=== PATIENT | female | born 1965 | race Caucasian/White ===

== ENCOUNTER 2020-08-03 09:49 | Outpatient (CLI) | payer BC, SELFPAY ==
[2020-08-03 13:12] LABS: Hemoglobin A1C 5.3 % (<5.7)
[2020-08-03 13:13] LABS: Anion Gap 9.4 mmol/L (3-11); BUN 11 mg/dL (7-18); CO2 29.6 mmol/L (21.0-32.0); CREATININE 0.6 mg/dL (0.55-1.02); Calcium 9.2 mg/dL (8.5-10.1); Calculated LDL 109 mg/dL (<100); Chloride 105 mmol/L (98-107); Cholesterol 205 mg/dL (<200); Glucose 89 mg/dL (74-106); HDL Cholesterol 83 mg/dL (40-60); Potassium 4.2 mmol/L (3.5-5.1); Sodium 144 mmol/L (136-145); Triglyceride 67 mg/dL (<150)
== END 2020-08-03 09:50 | disposition home or self-care (01) ==
LOC: LOS 09:50
PROVIDERS: PCP Nurse Practitioner Family; Referring Provider Nurse Practitioner Family; Visit Provider Nurse Practitioner Family
DX: E78.5 Hyperlipidemia, unspecified (principal)
CPT/HCPCS: 36415; 80048; 80061; 83036

== ENCOUNTER 2021-10-23 14:07 | Outpatient (REF) | payer BC, SELFPAY ==
[2021-10-23 21:30] LABS: Bilirubin Negative (Negative); Blood Large (Negative); Clarity Cloudy (Clear); Glucose Negative (Negative); Ketones Negative (Negative); Leukocyte Esterase Moderate (Negative); Nitrite Negative (Negative); Urobilinogen 0.2 EU/dL (Up TO 0.2)
[2021-10-23 21:39] LABS: WBC >50 HPF (0-5)
[2021-10-23 21:40] LABS: Bacteria Rare HPF (Negative); C & S Indicated? Yes; RBC >50 HPF (0-2)
== END 2021-10-23 14:08 | disposition home or self-care (01) ==
LOC: LBN 14:07
PROVIDERS: PCP Nurse Practitioner Family; Visit Provider Nurse Practitioner Family
DX: R35.0 Frequency of micturition (principal); R30.0 Dysuria; N39.0 Urinary tract infection, site not specified
CPT/HCPCS: 87077; 81003; 81015; 87086; 87186

== ENCOUNTER 2022-12-01 19:26 | Emergency (ER) | payer BC, SELFPAY ==
[2022-12-01 19:29] VITALS: BP 125/64; PULSE 84; TEMP 37.2; O2SAT 99
--- NOTE | 2022-12-01 19:42 | W.ED.GENAD ---
Discharge Plan Disposition Patient Disposition: Home Discharge Details Clinical Impression: Cellulitis Primary Care Provider: Yris Cerna ED Provider: Fabian García Home Meds and New Rx's Prescriptions: New cephalexin 500 mg tablet 500 mg PO QID 6 Days Qty: 24 0RF Continued Digestive Advantage Probio-Pre 800 million cell tablet PO estrotone PO DAILY cholecalciferol (vitamin D3) 250 mcg (10,000 unit) capsule 250 mcg PO DAILY multivitamin Tablet 1 tab PO DAILY Discharge Instructions Instructions: Cellulitis (ED) Additional Instructions: As discussed please monitor your symptoms closely and if you have any significant worsening of your condition return immediately to the emergency department for reassessment. Otherwise make sure you take the antibiotics as prescribed and complete the full course of medication. We have placed a referral to primary care provider and is recommended that you follow-up with them in the next 24 to 48 hours. Referrals: Yris Cerna, ONCOLOGY NURSE [Primary Care Provider] - 2 days Medical Decision Making Patient presenting to the emergency department for chief complaint of yellowjacket sting. Patient reports yesterday she was stung on the left thumb and had localized reaction which was unremarkable. This morning she woke up and noticed some increased erythema to the hand. Over the course of the day erythema became more painful and more swelling with streaking redness up her arm. She does state some chills now but denies any fever or other systemic symptoms. Physical exam does show area consistent with bee sting significant swelling and erythema with streaking up the arm to the mid bicep. Patient is not tachycardic, febrile or hypotensive. I am concerned due to significant staining and rapid progression in the last 24 hours with hand involvement. Due to this we will check blood work, blood cultures, and will initiate IV antibiotics with Ancef. Reviewed patient's labs and CBC is unremarkable, ESR is 3, lactate is 0.6. CRP 0.08 CMP shows slightly decreased potassium at 3.1 which we will orally replete otherwise labs are unremarkable. Given overall very reassuring lab work-up I do feel that patient is appropriate candidate for trial of outpatient therapy. Discussed with patient close monitoring of symptoms along with low threshold to return for significant worsening of condition fever or systemic symptoms. Patient is in agreement with this plan and states she will return if needed. Patient placed upon Keflex and on follow-up with primary care provider preferably in the next 24 to 48 hours. After discussion of diagnosis and plan of care patient has no further needs, questions, or concerns and states clear understanding to return to the emergency department for any worsening symptoms. This documentation was generated using [employer] dictation system, please disregard any oddities of phrase or misspellings. Lab Data Lab results reviewed: Yes I reviewed the patient's lab results. HPI General Mode of arrival: ambulatory. Date/Time Provider Initiated Documentation: 12/01/22 19:34. Limitations to Documentation: no limitations. Information obtained by: patient and RN notes reviewed. History of Present Illness 57 year old F presents to the emergency department with the chief complaint of Left hand bee sting, described as moderate, Quality is described as aching, and is localized to the left and upper extremity. Patient started experiencing this day(s) (1) and it has been constant. No relieving factors improve symptom(s), No exacerbating factors reported . Patient notes no other symptoms.. Patient did receive the following treatments prior to arrival, other (Benadryl) Related Data Home Medications Medication Instructions Recorded Confirmed Bacillus coagulans 800 million cell PO 02/26/22 02/26/22 cell tablet (Digestive Advantage Probiotics-Prebiotic) cholecalciferol (vitamin D3) 250 250 mcg PO DAILY 02/26/22 12/01/22 mcg (10,000 unit) capsule estrotone PO DAILY 02/26/22 02/26/22 multivitamin 1 tab PO DAILY 02/26/22 12/01/22 cephalexin 500 mg tablet 500 mg PO QID 6 days #24 tabs 12/01/22 Previous Rx's Medication Instructions Recorded cephalexin 500 mg tablet 500 mg PO QID 6 days #24 tabs 12/01/22 Allergies Allergy/AdvReac Type Severity Reaction Status Date / Time gluten Allergy Intermediate Verified 02/26/22 10:59 mold Allergy Intermediate Verified 02/26/22 10:59 General Stated Complaint: InsectBite ANT: 3 Review of Systems Constitutional Constitutional: Reports chills, Denies fever(s) and Denies malaise Cardiovascular Cardiovascular: Denies chest pain Respiratory Respiratory: Reports system reviewed and no additional complaints, except as documented Musculoskeletal Musculoskeletal: Reports arthralgias, Reports joint swelling and Denies limited range of motion Integumentary/Breasts Skin/Breast: Reports as per HPI, Reports erythema, Reports rash, Reports skin pain and Reports skin swelling [facility] All Active Problems (Updated 12/01/22 @ 21:33 by Fabian García NP) Cellulitis (Acute) 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 (Chronic) Stress incontinence (Chronic) Hyperlipidemia (Chronic) Medical History Basal cell carcinoma (10/16/14) S/p excisions from left neck and left forehead Depressive disorder Surgical History H/O basal cell carcinoma excision (10/16/14) From left neck S/P laparoscopy Diagnostic laproscopy S/P Mohs surgery for basal cell carcinoma (02/24/18) To left forehead S/P vaginal hysterectomy (05/01/09) For uterine prolapse at [facility]; ovaries remain Family History Mother , 70 Pulmonary emphysema Lung cancer Father , 70 Essential hypertension Heart disease Hyperlipidemia Brain aneurysm Thyroid disease Sister Atrial fibrillation Sister Asthma Thyromegaly Son No problems noted. Daughter Factor VIII deficiency Asthma Thyroid disease Maternal Grandfather Alcohol abuse Bone cancer Maternal Grandmother Lymphoma Paternal Grandfather No problems noted. Paternal Grandmother Asthma Stomach cancer Social History Smoking/Tobacco Use Status: Former Tobacco Use Quit Date: 03/30/82 Tobacco: How many years used: 5 Quit status: has quit before Second Hand Exposure: Yes Smoking risk assessment performed?: Yes Alcohol Intake: current Alcohol Intake frequency: a few times a month Alcohol type: beer, wine and hard liquor Drug use: Daily Substance use type: marijuana Caregiver/Support person: No Household members: spouse Housing: house Communication Needs: None Do you need help understanding health information?: Rarely Pets and animals: Yes Pets and animals: cat(s) Sexually active: Yes Do you think of yourself as: straight/heterosexual Current gender identity: female What is your relationship status?: How often do you talk on the phone with friends or family?: decline to answer How often do you get together with friends or relatives?: decline to answer How often do you attend pentecostalism or worship services?: decline to answer Do you belong to any clubs or organized social groups?: decline to answer Panel score (0-1 are the most socially isolated patients): 1 What type of physical activity do you participate in: decline to answer Duration: decline to answer Frequency: decline to answer Taina/Anabaptism: No preference Special taina needs: No Seatbelt use: always Helmet use: Yes Helmet use: always Drive intox or ride w/intox trolley coach driver: No Female Reproductive History Menstrual Menopause type: surgical History History 2 Para 2 Hx # Term Pregnancies Multiple births Hx # Pregnancies Ectopic pregnancies AB induced Hx Number of Living Children 2 AB spontaneous Exam Const General: cooperative, no acute distress and not ill appearing Orientation: alert, awake and oriented x3 HENMT Mouth: moist mucous membranes Resp Effort & Inspection: normal respiratory effort, able to speak in complete sentences and no respiratory distress Cardio Rate: regular rate Rhythm: regular rhythm Skin General skin exam: no rashes or lesions noted Neuro General: patient alert, patient awake, patient oriented x3, moves all extremities and no focal motor deficits Sensory Exam: no sensory deficits noted Extrem General: normal exam except as noted Left upper extremity: hand Details: normal capillary refill, warmth Location: of the dorsal hand and of the thumb, swelling Location: of the dorsal hand and of the thumb, puncture wound and other (Erythema on the hand thumb streaking up to the mid bicep) Course Vital Signs Vital signs: Vital Signs Temperature 37.2 C 12/01/22 19:29 Pulse 84 12/01/22 19:29 Blood Pressure 125/64 12/01/22 19:29 Pulse Oximetry 99 12/01/22 19:29 Temperature 37.2 C 12/01/22 19:29 Temperature Source Oral 12/01/22 19:29 Pulse 84 12/01/22 19:29 Blood Pressure 125/64 12/01/22 19:29 Blood Pressure Position Sitting 12/01/22 19:29 Pulse Oximetry 99 12/01/22 19:29 Oxygen Delivery Method Room Air 12/01/22 19:29 Oxygen Flow Rate 0 12/01/22 19:29 Pain Level 5 12/01/22 19:29 Lab/Test Results Lab/Test Results: 12/01/22 19:39 Blood Blood Culture - Pending 12/01/22 19:39 Blood Blood Culture - Pending
[2022-12-01] MEDS: ceFAZolin 2 GM/50 ML BAG IVPB (20:15)
[2022-12-01 20:18] LABS: Lactate 0.6 mmol/L (0.6-1.4)
[2022-12-01 20:21] LABS: Absolute Basophil Count 0.02 10^3/uL (0.0-0.2); Absolute Eosinophil Count 0.05 10^3/uL (0.0-0.7); Absolute Lymphocyte Count 1.36 10^3/uL (1.2-3.4); Absolute Monocyte Count 0.53 10^3/uL (0.1-0.8); Absolute Neutrophil Count 5.38 10^3/uL (1.2-6.7); Basophils % 0.3; Eosinophils % 0.7; HGB 15.1 g/dL (11.2-15.7); Lymphocytes % 18.5; MCH 29.4 pg (27.0-33.0); MCHC 33.6 % (32.0-36.0); MCV 88 fL (80-95); MPV 9.9 fL (8.0-11.0); Monocytes % 7.2; Neutrophils % 73.3; Platelet Count 182 10^3/uL (130-400); RBC 5.14 10^6/uL (3.93-5.22); RDW 12.1 % (11.7-14.6); RDW-SD 39.2 fL; WBC 7.34 10^3/uL (4.4-10.8)
[2022-12-01 20:22] LABS: ESR 3 mm/hr (0-30)
[2022-12-01 20:35] LABS: ALT 24 U/L (14-59); AST 18 U/L (15-37); Albumin 4.4 g/dL (3.4-5.0); Alkaline Phosphatase 93 U/L (46-116); Anion Gap 8.5 mmol/L (3-11); BUN 12 mg/dL (7-18); Bilirubin, Total 0.4 mg/dL (0.2-1.0); C-Reactive Protein 0.08 mg/dL (0.0-0.3); CO2 30.5 mmol/L (21.0-32.0); CREATININE 0.7 mg/dL (0.55-1.02); Calcium 9.3 mg/dL (8.5-10.1); Chloride 103 mmol/L (98-107); Estimated GFR 99.57 (mL/min/1.73m2); Glucose 95 mg/dL (74-106); Magnesium 2.1 mg/dL (1.8-2.4); Potassium 3.1 mmol/L (3.5-5.1); Sodium 142 mmol/L (136-145)
[2022-12-01] MEDS: Potassium Chloride 20 MEQ TABCR 40 MEQ PO (20:42)
[2022-12-01] MEDS: Cephalexin 500 MG CAP, 4 CAPS/BTL PO (21:40)
--- NOTE | 2022-12-01 21:41 | NUR.NOTE ---
Referral faxed to [facility] to follow up in 24-48 hours for Left hand cellulitis.
[2022-12-01 21:44] VITALS: BP 132/72; PULSE 72; RESP 16; O2SAT 99
== END 2022-12-01 21:44 | disposition home or self-care (01) ==
PROVIDERS: Emergency Provider Nurse Practitioner Family; PCP Nurse Practitioner Family
DX: T63.461A Toxic effect of venom of wasps, accidental (unintentional), initial encounter (principal); L03.114 Cellulitis of left upper limb; L50.8 Other urticaria; E87.6 Hypokalemia; Z87.891 Personal history of nicotine dependence; Y92.89 Other specified places as the place of occurrence of the external cause
CPT/HCPCS: 80053; 85652; 87040; 96365; 99283; 83605; 83735; 85025; 86140; J0690

== ENCOUNTER → 2023-03-10 01:51 | Outpatient (CLI) | payer BC, SELFPAY ==
--- NOTE | 2023-03-10 08:00 | DI.RAD_ITS ---
Exam(s) XR CERVICAL SPINE COMP 4-5V EXAM: XR CERVICAL SPINE COMP 4-5V CLINICAL HISTORY: chronic neck pain,m54.2. TECHNIQUE: 2D digital imaging was performed. Five views were performed. COMPARISON: No exams were available for comparison FINDINGS: BONES: No fracture or destructive lesion. Vertebral bodies are unremarkable. DISKS: Moderate to severe narrowing of the C5-6 and C7 disc spaces. Endplate osteophytes. Minimal n eural foraminal narrowing on the right at these levels. ALIGNMENT: Some straightening of the normal cervical lordosis which could be secondary to muscle spas m or degenerative changes. The odontoid and atlantoaxial articulations are normal. SOFT TISSUE: Normal. The lung apices are clear. IMPRESSION: Degenerative changes C5-6 and C6-7. DATA REPOSITORY: RADIATION DOSE DELIVERED:
--- NOTE | 2023-03-10 08:00 | DI.MAMMO_ITS ---
Exam(s) MAMMO SCREENING EXAM: MAMMO SCREENING CLINICAL HISTORY: screening,z12.39 TECHNIQUE: Bilateral full field digital CC and MLO mammographic images were obtained with 3D tomosyn thesis and utilizing computer aided detection (CAD). COMPARISON: Available for comparison. FINDINGS: Masses/Architectural Distortion: There has been no change in the well-circumscribed nodule in the go tral left breast. No new nodules are seen. No areas of architectural distortion are present. Microcalcifications: No suspicious pleomorphic-type are seen. Skin Thickening/Nipple Retraction: None. IMPRESSION: 1. No significant interval change with no specific features of malignancy noted. 2. Unless there is more urgent need, screening mammography is recommended, as per [place] guidelines. BI-RADS Category 2 - Benign Findings Breast Density - Category C - Heterogeneously dense Breast density category C or D implies that the patient has dense breast tissue. Dense breast tissue is very common and is not abnormal but dense breast tissue can make it harder to find cancer on a ma mmogram. Also, dense breast tissue may increase their breast cancer risk. This information about the result of the mammogram report was provided to the patient to raise their awareness. Use this report when you speak with the patient about their risks for breast cancer, which includes their family hist ory. At that time, you may recommend for more screening tests (Ultrasound or MRI) as they might be us eful based on their risk. A negative radiographic report should not delay biopsy if a dominant or clinically suspicious mass is present. Up to ten percent of cancers are not identified on mammography. A negative report may reinforce clinical impression. Adenosis and dense breasts may obscure an underlying neoplasm. False positive reports average 6 to 10%. Patient will receive a letter notifying them of these results.
== END ==
PROVIDERS: PCP Nurse Practitioner Family; Visit Provider Nurse Practitioner Family
DX: Z12.31 Encounter for screening mammogram for malignant neoplasm of breast (principal); M50.022 Cervical disc disorder at C5-C6 level with myelopathy; M50.023 Cervical disc disorder at C6-C7 level with myelopathy
CPT/HCPCS: 77063; 77067; 72050

== ENCOUNTER 2023-03-17 02:45 | Outpatient (CLI) | payer BC, SELFPAY ==
[2023-03-17 09:01] LABS: HCT 41.1 % (36.0-46.0); HGB 13.5 g/dL (11.2-15.7); MCH 29.3 pg (27.0-33.0); MCHC 32.8 % (32.0-36.0); MCV 89 fL (80-95); MPV 10.5 fL (8.0-11.0); Platelet Count 175 10^3/uL (130-400); RBC 4.61 10^6/uL (3.93-5.22); RDW 12.3 % (11.7-14.6); RDW-SD 40.4 fL; WBC 4.01 10^3/uL (4.4-10.8)
[2023-03-17 10:03] LABS: Anion Gap 5.7 mmol/L (3-11); BUN 10 mg/dL (7-18); CO2 30.3 mmol/L (21.0-32.0); CREATININE 0.7 mg/dL (0.55-1.02); Calculated LDL 91 mg/dL (<100); Chloride 103 mmol/L (98-107); Cholesterol 184 mg/dL (<200); Estimated GFR 99.57 (mL/min/1.73m2); Glucose 98 mg/dL (74-106); HDL Cholesterol 82 mg/dL (40-60); Potassium 3.5 mmol/L (3.5-5.1); Sodium 139 mmol/L (136-145); TSH (W/Ref FT4) 1.29 uIU/mL (0.36-3.74); Triglyceride 56 mg/dL (<150); Vitamin B12 625 pg/mL (193-986)
[2023-03-17 19:03] LABS: Hepatitis C Ab w Rflx HCV PCR Negative (Negative)
== END 2023-03-17 02:46 | disposition home or self-care (01) ==
LOC: LBO 02:45
PROVIDERS: PCP Nurse Practitioner Family; Visit Provider Nurse Practitioner Family
DX: Z00.00 Encounter for general adult medical examination without abnormal findings (principal)
CPT/HCPCS: 36415; 80048; 80061; 85027; 86803; 82607; 84443

== ENCOUNTER → 2023-04-07 01:51 | Outpatient (CLI) | payer BC, SELFPAY ==
--- NOTE | 2023-04-07 08:00 | DI.MRI_ITS ---
Exam(s) MR IAC BRAIN WO/W EXAM: MR IAC BRAIN WO/W CLINICAL HISTORY: vertigo,dizziness, tinnitus rt ear,[id number].H03.11 TECHNIQUE: Multiplanar multisequence MRI of the brain was performed. Both noninfused and contrast i nfused sequences were performed. IAC protocol sequences were employed IV Contrast injected was 10 cc Dotarem. COMPARISON: No exams were available for comparison FINDINGS: CEREBRAL PARENCHYMA: No evidence of intracranial hemorrhage, mass effect nor shift of midline structu re. No extraaxial fluid collections. Ventricles are not enlarged nor shifted. There is no significant focal signal abnormality in the cerebellar hemispheres nor within the joseph, m idbrain, and thalami. There is no abnormal signal abnormality in the periventricular white matter. There are no masses in the cerebellopontine angles and no evidence of intra canalicular acoustic schw annoma neuroma. The sub millimeter slice thickness sequences reveal normal appearing 7th and 8th refrigerator crater nial nerves within the bilateral internal auditory canals. DWI: No areas of restricted diffusion to suggest acute ischemic event. SWI: No microhemorrhages evident. There are no ring enhancing lesions in the brain. There is no abnormal meningeal enhancement. PITUITARY GLAND: No mass nor parasellar abnormality. No obvious abnormality in the cavernous sinuses. FLOW VOIDS: The expected flow void are noted. No evidence of obvious aneurysm nor obvious vascular ma lformation. PARANASAL SINUSES: The visualized paranasal sinuses appear unremarkable. ORBITS: No obvious abnormal findings. IMPRESSION: 1. No significant intracranial findings on this MRI scan of the brain. 2. No abnormal enhancing intracranial findings. There are no ring enhancing lesions in the brain and there is no abnormal meningeal enhancement. 3. No evidence of acoustic schwannoma/neuroma DATA REPOSITORY:
[2023-04-07] MEDS: Gadoterate meglumine 20 ML SYRINGE 10 ML IVP (13:54)
[2023-04-07] MEDS: Normal Saline Flush 10 ML SYR IVP (13:54)
== END ==
PROVIDERS: PCP Nurse Practitioner Family; Visit Provider Registered Nurse Maternal Newborn
DX: H93.11 Tinnitus, right ear (principal); R42 Dizziness and giddiness; M50.322 Other cervical disc degeneration at C5-C6 level
CPT/HCPCS: 70553

== ENCOUNTER → 2023-04-07 01:51 | Outpatient (CLI) | payer BC, SELFPAY ==
--- NOTE | 2023-04-07 08:00 | DI.MRI_ITS ---
Exam(s) MR CERVICAL SPINE WO EXAM: MR CERVICAL SPINE WO CLINICAL HISTORY: chronic neck pain, radiculopathy,djd,m47.812 TECHNIQUE: Multiplanar multisequence MRI of the cervical spine was performed without intravenous con trast. COMPARISON: CR XR CERVICAL SPINE COMP 4-5V from 03/10/2023 FINDINGS: CERVICOMEDULLARY JUNCTION: Intact with no evidence of cerebellar tonsillar ectopia. No obvious abnor mality of the odontoid process. No evidence of Chiari 1 malformation. CERVICAL SPINAL CORD: There is no abnormal signal in the cervical spinal cord and no evidence of foca l cord atrophy nor focal cord swelling. OSSEOUS: Mild bursal of the cervical curvature noted. Probably related to muscle spasm. No cervical fractures nor listhesis evident. Bright T1 and T2 2 signal evident in the C6 and C7 vertebral cande s consistent with intraosseous hemangiomas. No ominous osseous lesions identified. INDIVIDUAL LEVELS: C2-3: No disc herniation nor central canal stenosis. No foraminal stenosis. No facet arthropathy. C3-4: No disc herniation nor central canal stenosis.No facet arthropathy. No foraminal stenosis. C4-5: No disc herniation nor central canal stenosis.No facet arthropathy. No foraminal stenosis on th e right side. There are small Luschka joint osteophytes on the left side with mild left-sided forami nal stenosis. C5-6: Chronic disc space narrowing evident at this level. No disc herniation. No central canal sten osis. No facet arthropathy. Left-sided Luschka joint osteophytes are noted. Three. Mild left-side d foraminal stenosis. No foraminal stenosis on the right side. C6-7: Chronic disc space narrowing also evident at this level. No disc herniation or central canal s tenosis. No significant facet arthropathy evident. Small right-sided Luschka joint osteophytes. Mi nimal foraminal stenosis on the right side. Also mild foraminal stenosis on the left side due to Valeria chka joint osteophytes. C7-T1: No disc herniation nor central canal stenosis. No facet arthropathy.No foraminal stenosis. IMPRESSION: 1. There is multilevel chronic disc space narrowing at C5-6 and C6-7 levels and there are small Lusch ka joint osteophytes at these levels as described above. 2. There is no evidence of disc herniation nor central spinal canal stenosis in the cervical spine. There is mild foraminal stenosis at C5-6 and C6-7 levels related to small bilateral Luschka joint ost eophytes at these levels. There is no significant facet arthropathy. 3. There is no signal abnormality in the cervical spinal cord. No evidence of focal cord swelling no r focal cord atrophy DATA REPOSITORY:
[2023-04-07 13:46] LABS: CREATININE 0.7 mg/dL (0.55-1.02); Estimated GFR 99.57 (mL/min/1.73m2)
== END ==
PROVIDERS: Registered Nurse Maternal Newborn; PCP Nurse Practitioner Family; Visit Provider Nurse Practitioner Family
DX: H93.11 Tinnitus, right ear (principal); R42 Dizziness and giddiness; M47.812 Spondylosis without myelopathy or radiculopathy, cervical region
CPT/HCPCS: 72141; 82565

== ENCOUNTER 2023-07-08 05:43 | Outpatient (CLI) | payer BC, SELFPAY ==
[2023-07-08 13:28] LABS: Abs Immature Grans 0.01 10^3/uL (0.0-0.06); Absolute Basophil Count 0.03 10^3/uL (0.0-0.2); Absolute Eosinophil Count 0.02 10^3/uL (0.0-0.7); Absolute Lymphocyte Count 1.39 10^3/uL (1.2-3.4); Absolute Monocyte Count 0.48 10^3/uL (0.1-0.8); Absolute Neutrophil Count 3.48 10^3/uL (1.2-6.7); Basophils % 0.6; Eosinophils % 0.4; HCT 43.3 % (36.0-46.0); HGB 14.6 g/dL (11.2-15.7); Immature Grans % 0.2; Lymphocytes % 25.7; MCH 29.9 pg (27.0-33.0); MCHC 33.7 % (32.0-36.0); MCV 89 fL (80-95); Monocytes % 8.9; Neutrophils % 64.2; Platelet Count 182 10^3/uL (130-400); RBC 4.89 10^6/uL (3.93-5.22); RDW 11.9 % (11.7-14.6); RDW-SD 38.5 fL; WBC 5.41 10^3/uL (4.4-10.8)
== END 2023-07-08 05:44 | disposition home or self-care (01) ==
LOC: LBO 05:43
PROVIDERS: PCP Nurse Practitioner Family; Visit Provider Nurse Practitioner Family
DX: D72.819 Decreased white blood cell count, unspecified (principal)
CPT/HCPCS: 36415; 85025

== ENCOUNTER 2024-03-14 01:22 | Outpatient (CLI) | payer BC, SELFPAY ==
--- NOTE | 2024-03-14 15:40 | DI.MAMMO_ITS ---
Exam(s) MAMMO SCREENING EXAM: MAMMO SCREENING CLINICAL HISTORY: screening,z12.39 TECHNIQUE: Bilateral full field digital CC and MLO mammographic images were obtained with 3D tomosyn thesis and utilizing computer aided detection (CAD). COMPARISON: Available for comparison. FINDINGS: Masses/Architectural Distortion: None seen. Microcalcifications: No suspicious pleomorphic-type are seen. Skin Thickening/Nipple Retraction: None. IMPRESSION: 1. No significant interval change with no specific features of malignancy noted. 2. Unless there is more urgent need, screening mammography is recommended, as per [place] [employer] guidelines. BI-RADS Category 1 - Negative Breast Density - Category C - Heterogeneously dense Breast density category C or D implies that the patient has dense breast tissue. Dense breast tissue is very common and is not abnormal but dense breast tissue can make it harder to find cancer on a ma mmogram. Also, dense breast tissue may increase their breast cancer risk. This information about the result of the mammogram report was provided to the patient to raise their awareness. Use this report when you speak with the patient about their risks for breast cancer, which includes their family hist ory. At that time, you may recommend for more screening tests (Ultrasound or MRI) as they might be us eful based on their risk. A negative radiographic report should not delay biopsy if a dominant or clinically suspicious mass is present. Up to ten percent of cancers are not identified on mammography. A negative report may reinforce clinical impression. Adenosis and dense breasts may obscure an underlying neoplasm. False positive reports average 6 to 10%. Patient will receive a letter notifying them of these results.
== END 2024-03-14 01:42 ==
LOC: DI 01:22
PROVIDERS: PCP Nurse Practitioner Family; Visit Provider Nurse Practitioner Family
DX: Z12.31 Encounter for screening mammogram for malignant neoplasm of breast (principal); R92.333 Mammographic heterogeneous density, bilateral breasts
CPT/HCPCS: 77063; 77067

== ENCOUNTER 2024-04-25 11:39 | Outpatient (REF) | payer BC, SELFPAY | END 2024-04-25 11:40 | disposition home or self-care (01) | LOC: LBN 11:39 | PROVIDERS: PCP Nurse Practitioner Family; Visit Provider Podiatrist | DX: L60.3 Nail dystrophy (principal); L98.9 Disorder of the skin and subcutaneous tissue, unspecified; M79.673 Pain in unspecified foot; Z09 Encounter for follow-up examination after completed treatment for conditions other than malignant neoplasm; Z85.828 Personal history of other malignant neoplasm of skin | CPT/HCPCS: 87070; 87075; 87205 ==

== ENCOUNTER 2024-05-06 00:52 | Outpatient (CLI) | payer BC, SELFPAY ==
--- OUTSIDE RECORDS SUMMARY | 2024-05-06 01:03 | XMS_ITS | Encounter Summary ---
Author Organization [facility] Address [facility] [place] [address] Care Team Providers Care Foreign Exchange Position Clerk Name Role Phone ErynYris AIMEE Primary Care Provider Encounter Details Date Type Department Care Team (Late st Contact Info) Description 10/12/2019 Telephone Dermatology at [facility] [address] [place] [address] Chandni Monique MD [facility] [address] [place] [address] Social History Tobacco Use Types Packs/Day Years Used Date Smoking Tobacco: Former Smokeless Tobacco: Never Sex and Gender Information Value Date Recorded Sex Assigned at Female 12/04/2020 12:10 PM EDT Gender Identity Female 12/04/2020 12:10 PM EDT Sexual Orientation Straight 12/04/2020 12 :10 PM EDT documented as of this encounter Miscellaneous Notes * Telephone Encounter - Kadie Hdz - 10/12/2019 1:58 PM EDT I returned patient's call to schedule with Dr. Monique. I was unable to speak w/ anyone when I called, but I was able to leave [phone] for call back. documented in this encounter Plan of Treatment Upcoming Encounters Date Type Department Care Team (Late st Contact Info) Description 08/17/2024 1:00 PM EDT Office Visit Dermatology at [facility] [address] [place] [address] Sheila Campbell MD [facility] [address] [place] [address] documented as of this encounter Visit Diagnoses Not on filedocumented in this encounter Care Teams Foreign Exchange Position Clerk Relationship Specialty Start Date End Date Yehudazafar AIMEE Arndt [address] [place] [address] [address] [place] [address] PCP - General Family Medicine 07/30/18 documented as of this encounter
--- OUTSIDE RECORDS SUMMARY | 2024-05-06 01:03 | XMS_ITS | Encounter Summary ---
[facility] [place] [address] Care Team Providers Care Senior Financial Name Role Phone ErynMariamYris APRN Primary Care Provider Reason for Visit * Reason Comments Skin Lesion Encounter Details Date Type Department Care Team (Late st Contact Info) Description 02/07/2019 1:30 PM EST Office Visit Dermatology at [place] [address] [place] [address] Chandni Monique MD [facility] [address] [place] [address] Neoplasm of uncertain behavior of skin Social History Tobacco Use Types Packs/Day Years Used Date Smoking Tobacco: Former Smokeless Tobacco: Never Sex and Gender Information Value Date Recorded Sex Assigned at Female 12/04/2020 12:10 PM EDT Gender Identity Female 12/04/2020 12:10 PM EDT Sexual Orientation Straight 12/04/2020 12 :10 PM EDT documented as of this encounter Progress Notes * Chandni Monique MD - 02/07/2019 1:30 PM EST Images from the original note were not included. DERMATOLOGY ESTABLISHED PATIENT CLINIC NOTE DATE OF SERVICE: 02/07/2019 Cary Guajardo : 1965 PROVIDER: Chandni Monique MD PATIENT PREFERENCES: -prefers to be called:??Cary -ok to communicate detailed result information by: Mail?: Y?? MyDH?: Y Voicemail?: Y??and what #: [phone] (H) Chief Complaint Patient presents with ??? Skin Lesion HPI Cary Guajardo is a 53 y.o. year old female, established to Dermatology. Last seen by me on 12/22/18 - Patient presents for a follow up on her skin lesion on the left upper cutaneous lip that was observed on last visit and persists with the goal today to biopsy the area for a conclusive diagnosis Review of Systems: Feels well, no fatigue, no weight loss, no other skin concerns Sunscreen Use?: yes Skin Hx: Skin Cancer Type:??BCC?Location:??left neck?Treated with: excision at [facility]?When: 10/16/14 12/21/17: Skin, left forehead, shave ?? biopsy ONLY: - BASAL CELL CARCINOMA, NODULAR AND INFILTRATIVE PATTERNS, extending to peripheral ??and deep specimen edges - s/p mohs surgery 02/24/18 Dr. Martin Seborrheic dermatitis on scalp?? Eczema:??no Psoriasis:??no Staph Infections:??no?? Herpes Infections:??no EXAM General: AAOx3 Well-nourished adult in no apparent distress A focal examination of the following areas was performed:An exam of the skin from the neck up was performed. This includes examination of the skin of the face, ears, scalp, and neck. DIAGNOSIS/SKIN FINDINGS/ASSESSMENT/PLAN: # AK vs BCC - 7 mm x 3mm pearly pink papule located on the left columella -Joint decision to perform a shave biopsy today. Procedure: Skin biopsy by shave technique Location: Left columella Discussed indications for procedure and expectations including risks and benefits. Verbal consent obtained. Skin prep with alcohol. Local anesthesia with 1% xylocaine, 1/100,000 epinephrine. A sampleof the lesion was removed by shave technique to the level of the dermis and submitted to Pathology.Hemostasis obtained (AlCl and/or electrocautery). There were no complications; the pt. tolerated the procedure well. The wound was dressed. Post-procedure expectations, wound care and activity restrictions were reviewed. Follow-up based on pathology results. Photo(s) were taken and charted with patient consent: FOLLOW UP WHEN: PRN based on pathology I am documenting this encounter acting as the scribe for and in the presence of Dr.Roberta Kayden Boyce LPN I performed the above scribed service and agree with the accuracy of the documentation in this encounter. Chandni Monique MD Section of Dermatology [facility] Cary Guajardo 02/07/2019 [id number] documented in this encounter Plan of Treatment Upcoming Encounters Date Type Department Care Team (Late st Contact Info) Description 08/17/2024 1:00 PM EDT Office Visit Dermatology at [address] [address] Sheila Campbell MD [facility] [address] [place] [address] documented as of this encounter Procedures Procedure Name Priority Date/Time Associated Diagnosis Comments SPECIMEN TO PATHOLOGY Routine 02/07/2019 1:59 PM EST Neoplasm of uncertain behavior of skin SURGICAL PATHOLOGY REPORT Routine 02/07/2019 1:53 PM EST documented in this encounter Results * Specimen to Pathology (02/07/2019 1:59 PM EST) AP Specimen 02/07/2019 1:59 PM EST 02/07/2019 4:51 PM EST Narrative [facility] - 02/07/2019 4:51 PM EST Specimen requisition ordered. ??Separate Pathology report to follow Resulting Agency Comment Spec In Lab Chandni Monique MD PATHOLOGY/CYTOLOGY O RDERABLES [facility] [place] [address] * Surgical Pathology Report (02/07/2019 1:53 PM EST) Final Diagnosis [id number] ? Location: [facility] The signing pathologist has (i) examined the relevant preparation(s) for the specimen(s) and (ii) rendered or confirmed the diagnosis(es). . ?Surgical Pathology DIAGNOSIS Skin, left columella, shave biopsy ONLY: - Scar with extravasated erythrocytes Electronically signed by: ??Mary Bermudez MD Verified: ??02/11/2019 ?Dermatopatholo gist Performed at: ??-[facility] Dept. of Pathology, [place], [place] ADDITIONAL STUDIES Interpretation of multiple deeper leveled slide sections confirms the diagnosis above. The dermatology note and clinical image have been reviewed. CLINICAL INFORMATION Specimen Submitted: A - Skin, left columella, shave biopsy ONLY (1) Clinical History and Diagnosis: 7 mm x 3 mm pearly pink papule; BCC versus AK SPECIMEN PROCESSING A - Labeled/Fixative : Left columella, formalin. Quantity/Size: ??Single, 0.5 x 0.3 x 0.1 cm. Tissue Description: Irregular shave of krishna-pink skin. Sections/Process ing: Inked, bisected and entirely submitted in 1 cassette labeled A1. ??apb 02/11/2019 1:56 PM EST [facility] SPECIMEN FROM SKIN / Unknown 02/07/2019 1:53 PM EST 02/07/2019 1:53 PM EST Chandni Monique MD PATHOLOGY/CYTOLOGY O RDERAKAYLEN [facility] [place] [address] documented in this encounter Visit Diagnoses Diagnosis Neoplasm of uncertain behavior of skin documented in this encounter Care Teams Senior Financial Relationship Specialty Start Date End Date Yris Cerna APRN [address] [place] [address] PCP - General Family Medicine 07/30/18 documented as of this encounter
--- OUTSIDE RECORDS SUMMARY | 2024-05-06 01:03 | XMS_ITS | Encounter Summary ---
[place] [address] Care Team Providers Care Machine Deburrer Name Role Phone YehudacharissesiomaraYris AIMEE Primary Care Provider Reason for Visit * Reason Comments Skin Cancer Examination Encounter Details Date Type Department Care Team (Late st Contact Info) Description 12/08/2019 10:30 AM EDT Office Visit Dermatology at [facility] [address] [place] [address] Chandni Monique MD [facility] [place] [address] Actinic keratosis; Guardado angioma; Dermatofibroma; Seborrheic keratoses Social History Tobacco Use Types Packs/Day Years Used Date Smoking Tobacco: Former Smokeless Tobacco: Never Sex and Gender Information Value Date Recorded Sex Assigned at Female 12/04/2020 12:10 PM EDT Gender Identity Female 12/04/2020 12:10 PM EDT Sexual Orientation Straight 12/04/2020 12 :10 PM EDT documented as of this encounter Progress Notes * Chandni Monique MD - 12/08/2019 10:30 AM EDT DERMATOLOGY ESTABLISHED PATIENT CLINIC NOTE DATE OF SERVICE: 12/08/2019 Cary Guajardo : 1965 PROVIDER: Chandni Monique MD PATIENT PREFERENCES: -prefers to be called:??Cary -ok to communicate detailed result information by: Mail?: Y?? MyDH?: Y Voicemail?: Y??and what #: [phone] (H) Chief Complaint Patient presents with ??? Skin Cancer Examination HPI Cary Guajardo is a 54 y.o. year old female, established to Dermatology. Last seen by myself on02/07/19 - Patient presents for full body skin exam due to concerns about potential for skin cancer. Reports the followin. Raised lesion located right christianity - Present ~ 4 months. Asymptomatic. Denies any growth or change in color. 2. Lesion located on left upper eyelid - Present unknown amount of time. Asymptomatic. Review of Systems: Feels well, no fatigue, no weight loss, no other skin concerns Skin Hx: Skin Cancer Type:??BCC?Location:??left neck?Treated with: excision at [facility]?When: 10/16/14 12/21/17:??Skin, left forehead, shave ?? biopsy ONLY: - BASAL CELL CARCINOMA, NODULAR AND INFILTRATIVE PATTERNS, extending to peripheral ??and deep specimen edges - s/p mohs surgery 02/24/18 Dr. Martin Seborrheic dermatitis on scalp?? Eczema:??no Psoriasis:??no Staph Infections:??no?? Herpes Infections:??no EXAM General: AAOx3 Well-nourished adult in no apparent distress Skin:Patient was advised to fully undress and was given a medical gown. Patient was advised to remove underwear for a complete skin examination that includes buttocks and genitals. Option was given to wear their underwear, with the warning that clothed areas would not be examined and that this is not the preferred complete skin examination. Patient also advised that nail burkinan, makeup and jewelry/watches all interfere with a thorough examination. A total body skin exam except for areas covered by underwear was performed. This includes examination of the skin of the face, ears, neck, chest, axillae, left and right upper and lower extremities, hands and feet, abdomen, and except the areas covered by underwear were not examined. DIAGNOSIS/SKIN FINDINGS/ASSESSMENT/PLAN: # Seborrheic Keratoses - right christianity and trunk - Benign, patient reassured # Actinic Keratosis - Right periorbital cheek - Combined decision to treat with cryotherapy Procedure Note: Procedure: Destruction of lesions with cryotherapy. Number: 1 Location: as above Discussed procedure and expectations including risks (including risk of hypopigmentation) and benefits. Verbal consent obtained. Frozen with LN2, 15-30 second thaw time, TWICE. There were no complications; the patient tolerated the procedure well. Post-procedure expectations and wound care were reviewed. # Possible Skin Tag vs Normal Glandular Structure - Left eyelid - Benign, patient reassured # Guardado Angiomas - on trunk - Patient reassured # Dermatofibroma - on left lateral thigh and buttock - Benign, Patient reassured # Clavis - on left foot - Discussed paring down the skin to thin the clavis - Recommended clavis pads to reduce pressure and proper fitting of shoes FOLLOW UP WHEN: 1 year FOR WHAT: FSE LEVEL: 3 NOTES: I am documenting this encounter acting as the scribe for and in the presence of ZARIA Schwartz I performed the above scribed service and agree with the accuracy of the documentation in this encounter. Chandni Monique MD Section of Dermatology [facility] Cary Brenda Casandra 12/08/2019 [id number] documented in this encounter Plan of Treatment Upcoming Encounters Date Type Department Care Team (Late st Contact Info) Description 08/17/2024 1:00 PM EDT Office Visit Dermatology at [facility] [address] [place] [address] Sheila Campbell MD [facility] [place] [address] documented as of this encounter Visit Diagnoses Diagnosis Actinic keratosis Guardado angioma Nevus, non-neoplastic Dermatofibroma Benign neoplasm of skin, site unspecified Seborrheic keratoses documented in this encounter Care Teams Machine Deburrer Relationship Specialty Start Date End Date Yris Cerna APRN [address] [place] [address] PCP - General Family Medicine 07/30/18 documented as of this encounter
--- OUTSIDE RECORDS SUMMARY | 2024-05-06 01:03 | XMS_ITS | Encounter Summary ---
[place] [address] Care Team Providers Care Boatswains Mate Name Role Phone Yris Cerna APRN Primary Care Provider Encounter Details Date Type Department Care Team (Late st Contact Info) Description 04/29/2024 Telephone Dermatology at [facility] [address] [place] [address] Ed Bee MD Social History Tobacco Use Types Packs/Day Years Used Date Smoking Tobacco: Former Smokeless Tobacco: Never Sex and Gender Information Value Date Recorded Sex Assigned at Female 12/04/2020 12:10 PM EDT Gender Identity Female 12/04/2020 12:10 PM EDT Sexual Orientation Straight 12/04/2020 12 :10 PM EDT documented as of this encounter Miscellaneous Notes * Telephone Encounter - Earnest Mila Kole - 04/29/2024 11:47 AM EST Clinic Coverage - Reason for Call: Appointment Scheduling PCP: Yris Cerna APRN / Treating provider: Rohit, Message: Patient called and is requesting to schedule a Follow Up Reason for Visit: Yearly FUV documented in this encounter Plan of Treatment Upcoming Encounters Date Type Department Care Team (Late st Contact Info) Description 08/17/2024 1:00 PM EDT Office Visit Dermatology at [facility] [address] [place] [address] Sheila Campbell MD [facility] [address] [place] [address] documented as of this encounter Visit Diagnoses Not on filedocumented in this encounter Care Teams Boatswains Mate Relationship Specialty Start Date End Date Yris Cerna APRN [address] [place] [address] [address] [place] [address] PCP - General Family Medicine 07/30/18 documented as of this encounter
--- OUTSIDE RECORDS SUMMARY | 2024-05-06 01:03 | XMS_ITS | Encounter Summary ---
Author Organization [facility] Address [facility] [place] [address] Care Team Providers Care Paint Spraying Machine Operator Helper Name Role Phone Eryn Yris YU Primary Care Provider [phone] Encounter Details Date Type Department Care Team (Late st Contact Info) Description 10/19/2019 Telephone Dermatology at [facility] [address] [place] [address] Chandni Monique MD [facility] [address] [place] [address] Social History Tobacco Use Types Packs/Day Years Used Date Smoking Tobacco: Former Smokeless Tobacco: Never Sex and Gender Information Value Date Recorded Sex Assigned at Female 12/04/2020 12:10 PM EDT Gender Identity Female 12/04/2020 12:10 PM EDT Sexual Orientation Straight 12/04/2020 12 :10 PM EDT documented as of this encounter Miscellaneous Notes * Telephone Encounter - Kadie Hdz R - 10/19/2019 1:46 PM EDT I returned patient's call to reschedule postponed visit from May. I was not able to speak w/ anyone when I called and I was not able to leave a message. The phone rang for several minutes, but there was no answer and no voicemail. documented in this encounter Plan of Treatment Upcoming Encounters Date Type Department Care Team (Late st Contact Info) Description 08/17/2024 1:00 PM EDT Office Visit Dermatology at [facility] [address] [place] [address] Sheila Campbell MD [facility] [address] [place] [address] documented as of this encounter Visit Diagnoses Not on filedocumented in this encounter Care Teams Paint Spraying Machine Operator Helper Relationship Specialty Start Date End Date Yris Cerna APRN [address] [place] [address] PCP - General Family Medicine 07/30/18 documented as of this encounter
--- OUTSIDE RECORDS SUMMARY | 2024-05-06 01:03 | XMS_ITS | Encounter Summary ---
[place] [address] Care Team Providers Care Delphi Developer Name Role Phone Yris Cerna APRN Primary Care Provider [phone] Reason for Referral * - Closed Specialty Diagnoses / Procedures Referred By Alon javier Referred To Contact Diagnoses Visit for screening mammogram Procedures Mammo Screening Cad and Champ Bilateral Yris Cerna APRN [address] [place] [address] [facility] [place] [address] Referral ID Status Reason Start Date Expiration Date Visits Re quested Visits Authorized [id number] Closed 08/03/2020 08/03/2021 1 1 Reason for Visit * - Closed Specialty Diagnoses / Procedures Referred By Alon jaiver Referred To Contact Diagnoses Visit for screening mammogram Procedures Mammo Screening Cad and Champ Bilateral Yris Cerna APRN [address] [place] [address] [facility] [place] [address] Referral ID Status Reason Start Date Expiration Date Visits Re quested Visits Authorized [id number] Closed 08/03/2020 08/03/2021 1 1 Encounter Details Date Type Department Care Team (Late st Contact Info) Description 12/05/2020 10:01 AM EDT - 12/05/2020 11:59 PM EDT Hospital Encounter Mammography/[place] [address] Rheau, Yris, LAP CUTTER TRUER OPERATOR [address] [place] [address] Visit for screening mammogram Discharge Disposition: Home Social History Tobacco Use Types Packs/Day Years Used Date Smoking Tobacco: Former Smokeless Tobacco: Never Sex and Gender Information Value Date Recorded Sex Assigned at Female 12/04/2020 12:10 PM EDT Gender Identity Female 12/04/2020 12:10 PM EDT Sexual Orientation Straight 12/04/2020 12 :10 PM EDT documented as of this encounter Medications at Time of Discharge Medication Sig Dispensed Refills Start Date End Date ascorbic acid, vitamin C, (VITAMIN C) 500 mg Tablet, Chewable Take by mouth. cholecalciferol, Vitamin D3, 1,000 unit Capsule Take by mouth. multivitamin Capsule Take 1 capsule by mouth daily. COLLAGEN MISC by Misc.(Non-Drug; Combo Route) route. fluocinolone acetonide (SYNALAR) 0.01 % Solution Apply topically for itch on scalp daily for up to 2 weeks then 1-3 times/week prn 60 mL 1 12/03/2016 documented as of this encounter Plan of Treatment Upcoming Encounters Date Type Department Care Team (Late st Contact Info) Description 08/17/2024 1:00 PM EDT Office Visit Dermatology at [facility] [address] [place] [address] Sheila Campbell MD [facility] [address] [place] [address] documented as of this encounter Procedures Procedure Name Priority Date/Time Associated Diagnosis Comments MAMMO SCREENING CAD AND CHAMP BILATERAL Routine 12/05/2020 10:46 AM EDT Visit for screening mammogram documented in this encounter Results * Mammo Screening Cad and Champ Bilateral (12/05/2020 10:46 AM EDT) Anatomical Region Laterality Modality Breast Bilateral Mammography Narrative 12/05/2020 10:50 AM EDT BILATERAL MAMMOGRAPHY REASON FOR EXAM: Screening TECHNIQUE: CC and MLO views were obtained of each breast using standard 2-D mammography as well as 3-D tomosynthesis. Computer aided detection was used. This is compared with prior images. FINDINGS: ??The breasts are heterogeneously dense, which may obscure small masses. There are no suspicious microcalcifications, masses, or areas of distortion. The pattern is stable. CONCLUSION: No mammographic evidence of malignancy. RECOMMENDATION: Regular screening mammograms starting between age 40 and 50 reduces the risk of from breast cancer. All screening tests have both risks and benefits. These risks and benefits should be assessed for each individual patient through discussion with their provider to determine their preferred breast cancer screening schedule. Women should report any breast changes to a health care provider right away. Some women, because of their family history, a genetic tendency, or other factors, should be screened with annual breast MRI as well as with mammograms. (The number of women who fall into this category is very small). Patients and health care providers should discuss each patient? s history to decide if earlier screening and/or breast MRI are appropriate. Screening should continue as long as a woman is in good health and is expected to live 10 years or longer. Screening mammography may not detect 10-15% of breast cancers. A result letter has been sent to this patient by the [facility]. BIRADS CATEGORY 1: NEGATIVE Electronically signed by: CHUY SALTER MD Yris Cerna APRN IMG MAMMO ORDERABLE S documented in this encounter Visit Diagnoses Diagnosis Visit for screening mammogram Other screening mammogram documented in this encounter Care Teams Delphi Developer Relationship Specialty Start Date End Date Yris Cerna APRN [address] [place] [address] [address] [place] [address] PCP - General Family Medicine 07/30/18 documented as of this encounter
--- OUTSIDE RECORDS SUMMARY | 2024-05-06 01:03 | XMS_ITS | Encounter Summary ---
Author Organization [facility] Address [facility] [place] [address] Care Team Providers Care Supervisor Cigar Processing Name Role Phone ErynYris AIMEE Primary Care Provider Encounter Details Date Type Department Care Team (Late st Contact Info) Description 02/14/2019 Telephone Dermatology at [facility] [address] [place] [address] Chandni Monique MD [facility] [address] Social History Tobacco Use Types Packs/Day Years Used Date Smoking Tobacco: Former Smokeless Tobacco: Never Sex and Gender Information Value Date Recorded Sex Assigned at Female 12/04/2020 12:10 PM EDT Gender Identity Female 12/04/2020 12:10 PM EDT Sexual Orientation Straight 12/04/2020 12 :10 PM EDT documented as of this encounter Miscellaneous Notes * Telephone Encounter - Chandni Monique MD - 02/14/2019 5:26 PM EST Left message for pt with the followign results. bx shows scar. No BCC, no AK. Pt needs f/u in 6 mos. No further tx needed now in the area of concern but we should monitor closely. Warned pt that there is a very small risk that the bx didn't go deep enough to rule out a deeper skin cancer but that we will monitor for signs of growth, change 7d ago Surgical Pathology Report [id number] ? Location: [facility] The signing pathologist has (i) examined the relevant preparation(s) for the specimen(s) and (ii) rendered or confirmed the diagnosis(es). . ? Surgical Pathology DIAGNOSIS Skin, left columella, shave biopsy ONLY: - Scar with extravasated erythrocytes documented in this encounter Plan of Treatment Upcoming Encounters Date Type Department Care Team (Late st Contact Info) Description 08/17/2024 1:00 PM EDT Office Visit Dermatology at [facility] [address] [place] [address] Sheila Campbell MD [facility] [place] [address] documented as of this encounter Visit Diagnoses Not on filedocumented in this encounter Care Teams Supervisor Cigar Processing Relationship Specialty Start Date End Date Yris Cerna APRN [address] [place] [address] [address] [place] [address] PCP - General Family Medicine 07/30/18 documented as of this encounter
--- OUTSIDE RECORDS SUMMARY | 2024-05-06 01:03 | XMS_ITS | Encounter Summary ---
Author Organization [facility] [place] [address] Care Team Providers Care Health Promoter Name Role Phone YehudacharissesiomaraYris AIMEE Primary Care Provider Reason for Visit * Reason Comments Skin Check Encounter Details Date Type Department Care Team (Late st Contact Info) Description 12/05/2020 1:15 PM EDT Office Visit Dermatology at [facility] [address] [place] [address] Chandni Monique MD [facility] [address] [place] [address] History of basal cell carcinoma; Seborrheic keratoses; Benign nevus; Dermatofibroma; Seborrheic keratosis, inflamed Social History Tobacco Use Types Packs/Day Years Used Date Smoking Tobacco: Former Smokeless Tobacco: Never Sex and Gender Information Value Date Recorded Sex Assigned at Female 12/04/2020 12:10 PM EDT Gender Identity Female 12/04/2020 12:10 PM EDT Sexual Orientation Straight 12/04/2020 12 :10 PM EDT documented as of this encounter Progress Notes * Chandni Monique MD - 12/05/2020 1:15 PM EDT Images from the original note were not included. DEPARTMENT OF DERMATOLOGY Medical Dermatology Clinic Provider: Chandni Monique MD Patient's preferred name Cary Preferred contact method for results [x]myDH [x]Letter [x]Phone: Home Detailed phone message OK? Yes Are there any other people with whom we may discuss your care? , Konrad PAST MEDICAL HISTORY If no, type N. If yes, type date, location, treatment Melanoma No Dysplastic nevi No SCC No BCC 10/16/2014: BCC of the left neck, s/p excision @ [facility] 02/24/2018: BCC, nodular and infiltrative of the forehead, s/p Mohs AKs LN2 UV Exposure & Protection + history of tanning bed use + history of blistering sunburn Sun Protection: sunscreen, hats Other relevant past medical history (i.e. 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 If yes, include details below Allergy to lidocaine, epinephrine, Dermabond, chlorhexidine, or adhesives: No Bleeding disorder or blood thinners: No Pacemaker, defibrillator, deep brain stimulator, cochlear implant: No History of Present Illness: Cary Guajardo is a 55 y.o. year old. Patient returns to clinic today for a full skin exam with the following concerns: - Cary notes two lesions, one on her lower back and one on her upper left thigh. She first noticed the lesion on her left thigh over a year ago, while the lesion on her back presented less than a year ago. She denies any tenderness or pruritus of the lesion on her thigh but endorses intermittent pruritus of the lesion on her back. Last visit at [facility] Derm: 12/08/2019 Last visit with this provider: 12/08/2019 Medications: Reviewed in eD-H Allergies: Reviewed in eD-H Skin Examination: Full skin examination: Patient asked to undress to their comfort level. verbalized that the provider's preference is that patient removal all clothing and that the provider will not examine areas patient elects to keep covered. Patient elects to keep underwear on and have the following examined: scalp, hair, head, face, ears, neck, chest, axillae, abdomen, back, and left and right upper and lowerextremities. Genitalia and buttocks were not examined. Assessment/Plan 1. History of BCC - Well healed scars on the forehead and left neck. - NER; will continue to clinically monitor. 2. Sun Protection Counseling - Patient with history of significant sun exposure. - Discussed the importance of sun protection including hat with brim, sun protective clothing, sunscreen SPF 30, avoiding peak hours of sunlight. - Reviewed ABCDE's of Melanoma, and other etiologies of non-melanotic skin cancers. - Recommended to perform monthly skin exams and to monitor any spots of concern. 3. Seborrheic Keratoses - Brown and flesh colored waxy nummular stuck on plaques located on the back and left anterior upper thigh. - Reassured of benign nature, return to clinic if the lesion becomes inflamed or irritating. 4. Benign Nevus - Medium brown macule on the left instep. - Reassured of benign nature. 5. Dermatofibromas - 3mm dermatofibroma on the left posterior calf, and additional dermatofibroma on the left lateral thigh and buttock. - Reassured of benign nature 6. Inflamed Seborrheic Keratosis - 0.4-0.6 cm inflamed, pink-brown plaque with waxy stuck-on appearance on the lower back. - Offered treatment with LN2; however, patient declines at this time as lesion is not bothersome. Other items to document in the assessment/plan if relevant ??? Sun protection discussed (protective clothing and SPF30+ broad-spectrum sunscreen) RTC: 12 months for FSE []Note routed to assistant professor of physics [x]Recall has been placed in scheduling system []Appointment scheduled at checkout Scribe attestation: ZARAI Davey who has performed the documentation for this encounter in the presence of and acting as a scribe for Chandni Monique MD. I performed the above scribed service and agree with the accuracy of the documentation in this encounter. Reviewed and signed by: Chandni Monique MD Dermatology [facility] documented in this encounter Plan of Treatment Upcoming Encounters Date Type Department Care Team (Late st Contact Info) Description 08/17/2024 1:00 PM EDT Office Visit Dermatology at [facility] [address] [place] [address] Sheila Campbell MD [facility] [address] [place] [address] documented as of this encounter Visit Diagnoses Diagnosis History of basal cell carcinoma Personal history of other malignant neoplasm of skin Seborrheic keratoses Benign nevus Benign neoplasm of skin, site unspecified Dermatofibroma Benign neoplasm of skin, site unspecified Seborrheic keratosis, inflamed Inflamed seborrheic keratosis documented in this encounter Care Teams Health Promoter Relationship Specialty Start Date End Date Yehudazafar AIMEE Arndt [address] [place] [address] [address] [place] [address] PCP - General Family Medicine 07/30/18 documented as of this encounter
--- OUTSIDE RECORDS SUMMARY | 2024-05-06 01:03 | XMS_ITS | Encounter Summary ---
Author Organization [facility] Address [facility] [place] [address] Care Team Providers Care Block Tester Name Role Phone Yris Cerna APRN Primary Care Provider Encounter Details Date Type Department Care Team (Latest Contact Info) Description 10/08/2022 Travel Social History Tobacco Use Types Packs/Day Years Used Date Smoking Tobacco: Former Smokeless Tobacco: Never Sex and Gender Information Value Date Recorded Sex Assigned at Female 12/04/2020 12:10 PM EDT Gender Identity Female 12/04/2020 12:10 PM EDT Sexual Orientation Straight 12/04/2020 12 :10 PM EDT documented as of this encounter Plan of Treatment Upcoming Encounters Date Type Department Care Team (Late st Contact Info) Description 08/17/2024 1:00 PM EDT Office Visit Dermatology at [facility] [address] [place] [address] Sheila Campbell MD [facility] [place] [address] documented as of this encounter Visit Diagnoses Not on filedocumented in this encounter Care Teams Block Tester Relationship Specialty Start Date End Date Yris Cerna APRN [address] [place] [address] PCP - General Family Medicine 07/30/18 documented as of this encounter
--- OUTSIDE RECORDS SUMMARY | 2024-05-06 01:03 | XMS_ITS | Encounter Summary ---
[place] [address] Care Team Providers Care Channel Partners Name Role Phone Eryn Yris YU Primary Care Provider [phone] Encounter Details Date Type Department Care Team (Late st Contact Info) Description 10/15/2022 11:20 AM EDT Office Visit Dermatology at [facility] [address] [place] [address] Ed Bee MD [place] (actinic keratosis); Seborrheic keratoses; Multiple benign nevi; Lentigines; Guardado angioma; Dermatofibroma; History of basal cell carcinoma Social History Tobacco Use Types Packs/Day Years Used Date Smoking Tobacco: Former Smokeless Tobacco: Never Sex and Gender Information Value Date Recorded Sex Assigned at Female 12/04/2020 12:10 PM EDT Gender Identity Female 12/04/2020 12:10 PM EDT Sexual Orientation Straight 12/04/2020 12 :10 PM EDT documented as of this encounter Progress Notes * Ed Bee MD - 10/15/2022 11:20 AM EDT Images from the original note were not included. DEPARTMENT OF DERMATOLOGY Medical Dermatology Clinic Provider: Ed Bee MD Patient's preferred name Cary Preferred contact method for results [x]myDH [x]Letter [x]Phone: Home Detailed phone message OK? Yes Are there any other people with whom we may discuss your care? , Konrad PAST MEDICAL HISTORY If no, type N. If yes, type date, location, treatment Melanoma No Dysplastic nevi No SCC No BCC 10/16/2014: BCC of the left neck, s/p excision @ [facility] 02/24/2018: BCC, nodular and infiltrative of [...] of Present Illness: Cary Guajardo is a 57 y.o. Patient returns to clinic today for full skin exam. Patient reports the following: - Patient reports a history of a raised lesion located on the scalp that is not present during today's visit. - Patient reports a dry bump locate don the forehead, lesion is asymptomatic. Last visit at Dermatology: 12/05/2020 Last visit with this provider: Visit date not found Medications: Reviewed in eD-H Allergies: Reviewed in eD-H Skin Examination: Full skin examination: Patient asked to undress to their comfort level. Verbalized that the provider???s preference is that the patient remove all clothing and that the provider will not examine areas patient elects to keep covered. Patient elects to keep underwear on and have the following examined: scalp, hair, face, ears, neck, chest, axillae, abdomen, back, and upper and lower extremities. Genitalia and buttocks were not examined. Assessment/Plan #. Actinic Keratosis - Ill-defined gritty papule on the right lateral eyebrow x1. - Explained premalignant potential of these lesions. - Discussed treatment with cryotherapy. Patient elects to proceed with cryotherapy today. - Instructed patient to return to clinic for re-evaluation if lesion(s) does not resolve as expected with this treatment. Procedure: Destruction of lesion(s) with cryotherapy (LN2). Location(s): As noted above. Number: 1 Discussed procedure and expectations, including risks and benefits. Verbal consent obtained. Treated with LN2. There were no complications; Patient tolerated the procedure well. Post-procedure expectations and wound care reviewed. #. Seborrheic Keratoses - Stuck on, waxy papules on the trunk and extremities. - Discussed benign nature of lesions and provided reassurance. No treatment necessary at this time. #. Benign Nevi - Scattered medium brown, evenly pigmented macules and papules on the trunk and extremities with reassuring pigment pattern on dermoscopy. - Discussed benign nature of lesions and provided reassurance. Will continue to monitor. #. Lentigines - Scattered light-brown, evenly pigmented, well-demarcated macules on sun-exposed areas of the trunk and extremities. - No worrisome pigmented lesions. Discussed benign nature of lesions and provided reassurance. Willcontinue to monitor. #. Guardado Angiomas - Multiple bright red, well-demarcated papules on the trunk and extremities. - Discussed benign nature of lesions and provided reassurance. No treatment necessary at this time. #. Dermatofibroma's - Firm papules, centrally raised and sclerotic, with peripheral hyperpigmentation and dimpling with lateral pressure on the left lateral thigh x1, left buttock x1. - Discussed that these are benign fibrous (scar-like) lesions. No treatment necessary. #. History of BCC - Well-healed scar on the left neck, and forehead per skin history. - No evidence of recurrence; will continue to monitor. Other: OTC skin products discussed RTC: 2 years for FSE []Note routed to medical secretary [x]Recall placed in scheduling system []Appointment scheduled at checkout Scribe attestation: Kd Esposito has performed the documentation for this encounter in the presence of and acting as a scribe for Ed Bee MD. I performed the above scribed service and agree with the accuracy of the documentation in this encounter. Reviewed and signed by: Ed Bee MD [facility] Patient seen and evaluated with staff personal security specialist: Alexia Valencia MD [facility] * Alexia Valencia MD - 10/15/2022 11:20 AM EDT I directly supervised Dr. Bee during this office visit. Dr. Bee presented the history and physical exam to me. I then saw and examined this patient with Dr. Bee . We reviewed the history and pertinent details and I confirmed the physical findings. I agree with the details of the history and physical exam as documented in Dr. Bee's note. ALEXIA VALENCIA MD Staff Physician documented in this encounter Plan of Treatment Upcoming Encounters Date Type Department Care Team (Late st Contact Info) Description 08/17/2024 1:00 PM EDT Office Visit Dermatology at [address] [address] Sheila Campbell MD [facility] [address] [place] [address] documented as of this encounter Visit Diagnoses Diagnosis AK (actinic keratosis) Actinic keratosis Seborrheic keratoses Multiple benign nevi Benign neoplasm of skin, site unspecified Lentigines Other dyschromia Guardado angioma Nevus, non-neoplastic Dermatofibroma Benign neoplasm of skin, site unspecified History of basal cell carcinoma Personal history of other malignant neoplasm of skin documented in this encounter Care Teams Channel Partners Relationship Specialty Start Date End Date Mariam CernaAIMEE lopez [address] [place] [address] [address] [place] [address] PCP - General Family Medicine 07/30/18 documented as of this encounter
--- OUTSIDE RECORDS SUMMARY | 2024-05-06 01:03 | XMS_ITS | Encounter Summary ---
Author Organization [facility] Address [facility] [place] [address] Care Team Providers Care Wheel Truer Name Role Phone Yris Cerna APRN Primary Care Provider Encounter Details Date Type Department Care Team (Latest Contact Info) Description 10/15/2022 Travel Social History Tobacco Use Types Packs/Day [...] 1:00 PM EDT Office Visit Dermatology at [facility] [address] [place] [address] Sheila Campbell MD [facility] [place] [address] documented as of this encounter Visit Diagnoses Not on filedocumented in this encounter Care Teams Wheel Truer Relationship Specialty Start Date End Date Yris Cerna APRN [address] [place] [address] PCP - General Family Medicine 07/30/18 documented as of this encounter
--- OUTSIDE RECORDS SUMMARY | 2024-05-06 01:03 | XMS_ITS | Clinical Summary ---
Author Organization [facility] Address [facility] [place] [address] Care Team Providers Care Skiver Heel Tap Name Role Phone Yris Cerna APRN Primary Care Provider Allergies No known active allergies Medications Medication Sig Dispensed Refills Start Date End Date Status fluocinolone acetonide (SYNALAR) 0.01 % Solution Apply topically for itch on scalp daily for up to 2 weeks then 1-3 times/week prn 60 mL 1 12/03/2016 Active Additional Information Patient not taking.Reported on 02/24/2018 ascorbic acid, vitamin C, (VITAMIN C) 500 mg Tablet, Chewable Take by mouth. Active cholecalciferol, Vitamin D3, 1,000 unit Capsule Take by mouth. Active multivitamin Capsule Take 1 capsule by mouth daily. Active COLLAGEN MISC by Misc.(Non-Drug; Combo Route) route. Active Active Problems No known active problems Encounters Date Type Department Care Team Description 04/29/2024 Telephone Dermatology at [facility] [address] [place] [address] Ed Bee MD from Last 3 Months Family History Medical History Relation Comments Breast Cancer Neg Hx Social History Tobacco Use Types Packs/Day Years Used Date Smoking Tobacco: Former Smokeless Tobacco: Never Sex and Gender Information Value Date Recorded Sex Assigned at Female 12/04/2020 12:10 PM EDT Gender Identity Female 12/04/2020 12:10 PM EDT Sexual Orientation Straight 12/04/2020 12 :10 PM EDT Last Filed Vital Signs Vital Sign Reading Time Taken Comments Blood Pressure 108/52 02/24/2018 8:50 AM EST Pulse 70 02/24/2018 8:50 AM EST Temperature - - Respiratory Rate - - Oxygen Saturation - - Inhaled Oxygen Concentration - - Weight - - Height - - Body Mass Index - - Plan of Treatment Upcoming Encounters Date Type Department Care Team (Late st Contact Info) Description 08/17/2024 1:00 PM EDT Office Visit Dermatology at [facility] [address] [place] [address] Sheila Campbell MD [facility] [address] [place] [address] Health Maintenance Due Date Last Done Comments CT Colonography 1965 Colonoscopy 1965 Colorectal Cancer Screening 1965 FIT DNA 1965 FIT 1965 Sigmoidoscopy (10 year) with FIT yearly 1965 Sigmoidoscopy 1965 HIV screen 1981 Hepatitis C Screening 1981 Tetanus/Diphtheria/Pertussis Vaccines (1 - Tdap) 1982 HPV test 1993 PAP Smear 1993 Breast Cancer Share Decision Needed 2003 Pneumoccocal Vaccine: 50+ (1 of 1 - PCV) 2013 Zoster vaccine (1 of 2) 2013 Advance Directive 2018 Breast Cancer screening 12/05/2022 12/06/19 21, 12/22/2018, 12/03/2016, Additional history exists Covid-19 Vaccine ( - 2023-2 5 season) 2023 Influenza (Flu) vaccine (1 o f 1 - Influenza standard series) 11/29/2023 Procedures Procedure Name Priority Date/Time Associated Diagnosis Comments MAMMO SCREENING CAD AND CHAMP BILATERAL Routine 12/05/2020 10:46 AM EDT Visit for screening mammogram from Last 3 Months or Most Recently Relevant to Health Maintenance Results * Mammo Screening Cad and Champ [...] Electronically signed by: CHUY SALTER MD Yris Adjovu SPORTS MEDICINE COORDINATOR IMG MAMMO ORDERABLE S from Last 3 Months or Most Recently Relevant to Health Maintenance Care Teams Skiver Heel Tap Relationship Specialty Start Date End Date Yris Cerna APRN [address] [facility] [address] [place] [address] PCP - General Family Medicine 07/30/18
--- OUTSIDE RECORDS SUMMARY | 2024-05-06 01:04 | XMS_ITS | Encounter Summary ---
Author Organization [facility] Address [address] [place] [address] Care Team Providers Care Transfer Controller Name Role Phone Unavailable Primary Care Provider Unavailabl e Encounter Details Date Type Department Care Team (Late st Contact Info) Description 12/22/2008 Orders Only [facility] Laboratory Services - [facility] ([facility] [address] [place] [address] Chen Webster MD [address] [place] [address] Social History Tobacco Use Types Packs/Day Years Used Date Smoking Tobacco: Never Assessed Comments Unknown Sex and Gender Information Value Date Recorded Sex Assigned at Not on file Legal Sex Female 18:23 EST Gender Identity Not on file Sexual Orientation Not on file documented as of this encounter Plan of Treatment Not on file documented as of this encounter Procedures Procedure Name Priority Date/Time Associated Diagnosis Comments CYTOPATHOLOGY Routine 12/22/2008 0:00 EDT documented in this encounter Results * CYTOPATHOLOGY (12/22/2008 0:00 EDT) Pathology Report: CYTOPATHOLOGY REPORT ? Reports generated via electronic interface contain original data; ? however they are lacking the format of the original report. ? Caution should be taken when reading/interpreti ng unformatted reports. ? Name: ? CARY GUAJARDO ? Accession #: ? [id number] ? : ? 1965 (Age: 43) ??F ?Collect Date: ? 12/22/2008 ? Location: ? [facility] ? Receive Date: ? 12/26/2008 ? Provider: ?CHEN WEBSTER MD ? Copy to: ? Specimen/Source: ?Pap Test, Vagina/Cervix/Endo cervix, ThinPrep Imaging ? System with manual evaluation ? Last Menstrual Period: ? 3 wks. ? Previous Gynecologic Pathology: ? ASC-US: negative HPV ? SPECIMEN ADEQUACY ? Satisfactory for Evaluation ? - transformation zone component present ? GENERAL CATEGORIZATION ? Negative for Intraepithelial Lesion or Malignancy ? INTERPRETATION ? Reactive cellular changes associated with inflammation present (includes ?? repair). ? Document reviewed and electronically signed by: ? Meño Yoandy Cipriano, MD ? Report Date: ??01/01/2009 10:53 ? End of Report ? [facility] 12/22/2008 12/26/2008 us Chen Webster MD PATHOLOGY ORDERABLES Final Resu lt [facility] [address] [place] [address] documented in this encounter Visit Diagnoses Not on filedocumented in this encounter
--- OUTSIDE RECORDS SUMMARY | 2024-05-06 01:04 | XMS_ITS | Encounter Summary ---
Author Organization [facility] Address [facility] [place] [address] Care Team Providers Care Prn Physical Therapist Name Role Phone Pricila Oscar APRN Primary Care Provider [phone] Reason for Visit * Reason Comments Skin Check Encounter Details Date Type Department Care Team (Late st Contact Info) Description 12/03/2016 8:30 AM EDT Office Visit Dermatology at [address] [address] Codi Rush MD [facility] [address] [facility] [place] [address] Dermatofibroma; Seborrheic keratosis; History of basal cell cancer; Seborrheic dermatitis Social History Tobacco Use Types Packs/Day Years Used Date Smoking Tobacco: Former Smokeless Tobacco: Never Sex and Gender Information Value Date Recorded Sex Assigned at Female 12/04/2020 12:10 PM EDT Gender Identity Female 12/04/2020 12:10 PM EDT Sexual Orientation Straight 12/04/2020 12 :10 PM EDT documented as of this encounter Progress Notes * Codi Rush MD - 12/03/2016 8:30 AM EDT DERMATOLOGY NEW PATIENT CLINIC NOTE Date of service: 12/03/2016 Cary Guajardo : 1965 Provider: Codi Rush MD Chief Complaint Patient presents with ??? Skin Check SKIN HX: Father-cancer; unknown type 10/16/[id number] HPI Cary Guajardo is a 51 y.o. year old female. New patient to me and to Dermatology. Presents to clinic today for a full skin exam. She reports several scaly spots on the lower extremities. Lesion is asymptomatic; patient denies associated pruritus, burning sensation, tenderness, pain, or spontaneous b leeding. Also comments a firm pink raised lesion on the left lower buttocks. No tenderness and bleeding associated with lesion. C/o itch and scale on right side of scalp Patient reports using an OTC retinoid product to the face to treat wrinkles. She notes scaling in right NL fold that has not resolved despite stopping the retinoid. When questioned about spot on left lower lip; patient states it is longstanding without change ADR: Review of patient's allergies indicates not on file. MEDS: No current outpatient prescriptions on file. No current facility-administered medications for this visit. ROS General: feeling well Skin: denies other skin complaints EXAM General: NAD, pleasant, cooperative Skin: Patient was asked to disrobe to the level of their comfort. A total body skin exam except forthe genitalia was performed. This includes examination of the skin of the face, ears, neck, chest, axillae, left and right upper and lower extremities, hands, feet, abdomen, back, and buttocks. The genitalia, perineum, and perianal areas were not examined. Significant skin findings: A. Left parietal scalp and left NL fold: greasy scaly overlying erythematous patches B. Multiple 0.4-1 cm, brown-black papules/plaques with waxy stuck on appearance on left lower buttock, back and legs C. Left calf-x 1, left thigh x 1-firm papules, centrally raised and sclerotic, with peripheral hyperpigmentation and dimpling with lateral pressure. D. Well-healed hypopigmented scars at sites above, no signs of recurrence-per skin history E. Left lower vermilion lip= 0.3 cm well demarcated white papule. Non specific under dermoscopy. Present for many years. ASSESSMENT/PLAN: A. Seborrheic dermatitis on scalp. Rx-Fluocinolone 0.05 % Solution-Apply nightly to the scalp up to 2 weeks, then 1-3 times weekly formaintenance., Disp-60 mL, R-3 I advised patient to use OTC dandruff shampoo. Apply and leave on for 15 minutes, then rinse. -also recommended she apply OTC cortisone to folds twice daily up to 2 weeks helping to reduce scaling For seborrheic dermatitis on right NL fold; recommend OTC hydrocortisone x a few days B. Seborrheic Keratosis - Etiology discussed with patient - Patient reassured lesions are benign in nature - Education material provided C. Dermatofibroma (DF) - Patient reassured lesions are benign in nature D. Scar-s/p hx of BCC-NER E. Stable non-specific papule -Discussed changes (bleeding, pain, change in color or shape) that should prompt re-evaluation. ?? briefly discussed cosmetic options; topicals vs injections and laser. She will call should she like to pursue a consultation. Follow up-full skin 1 year- sooner should problems occur. Patient instructed to call with questionsor concerns I am documenting this encounter acting as the scribe for and in the presence of Dr. Rush.: Toya Leiva LPN I performed the above scribed service and agree with the accuracy of the documentation in this encounter. Codi Rush MD Section of Dermatology [facility] documented in this encounter Plan of Treatment Upcoming Encounters Date Type Department Care Team (Late st Contact Info) Description 08/17/2024 1:00 PM EDT Office Visit Dermatology at [facility] [address] [place] [address] Sheila Campbell MD [facility] [address] [place] [address] documented as of this encounter Visit Diagnoses Diagnosis Dermatofibroma Benign neoplasm of skin, site unspecified Seborrheic keratosis Other seborrheic keratosis History of basal cell cancer Personal history of other malignant neoplasm of skin Seborrheic dermatitis Seborrheic dermatitis, unspecified documented in this encounter Care Teams Prn Physical Therapist Relationship Specialty Start Date End Date Pricila Oscar APRN PCP - General 12/06/14 07/29/18 documented as of this encounter
--- OUTSIDE RECORDS SUMMARY | 2024-05-06 01:04 | XMS_ITS | Clinical Summary ---
Author Organization [facility] Address [address] [place] [address] Care Team Providers Care Lithopress Operator Name Role Phone Pricila Oscar NP Primary Care Provider Social History Tobacco Use Types Packs/Day Years Used Date Smoking Tobacco: Never Assessed Comments Unknown Sex and Gender Information Value Date Recorded Sex Assigned at Not on file Legal Sex Female 18:23 EST Gender Identity Not on file Sexual Orientation Not on file Plan of Treatment Health Maintenance Due Date Last Done Comments COVID-19 Vaccine (2023- season) 2023 RSV Immunization ( o r 60+ Years) (1 - 1-dose 75+ series) 2038 Hepatitis C Screen Completed 03/17/2023 Procedures Procedure Name Priority Date/Time Associated Diagnosis Comments HEPATITIS C AB W REFLEX TO HCV RNA BY PCR Routine 03/17/2023 8:52 EST from Last 3 Months or Most Recently Relevant to Health Maintenance Results * HEPATITIS C AB W REFLEX TO HCV RNA BY PCR (03/17/2023 8:52 EST) Hep C Antibody Negative Negative 03/17/2023 18:[address] [facility] Blood VENOUS BLOOD / Unknown 03/17/2023 8:52 EST 03/17/2023 16:30 EST us Provider Outr Resulting Lab CHEMISTRY & BLOOD GA S ORDERABLES Final Result [facility] [address] [place] [address] from Last 3 Months or Most Recently Relevant to Health Maintenance Care Teams Lithopress Operator Relationship Specialty Start Date End Date Pricila Oscar, BERT PCP - General 10/18/14
--- OUTSIDE RECORDS SUMMARY | 2024-05-06 01:04 | XMS_ITS | Encounter Summary ---
Author Organization [facility] [place] [address] Care Team Providers Care Tire Recapping Machine Operator Name Role Phone Unknown Primary Care Provider Unavailabl e Encounter Details Date Type Department Care Team (Late st Contact Info) Description 03/25/2012 [place] [address] Julita Baires MD [facility] [address] Social History Tobacco Use Types Packs/Day Years Used Date Smoking Tobacco: Never Assessed Sex and Gender Information Value Date Recorded Sex Assigned at Female 12/04/2020 12:10 PM EDT Gender Identity Female 12/04/2020 12:10 PM EDT Sexual Orientation Straight 12/04/2020 12 :10 PM EDT documented as of this encounter Plan of Treatment Upcoming Encounters Date Type Department Care Team (Late st Contact Info) Description 08/17/2024 1:00 PM EDT Office Visit Dermatology at [facility] [address] [place] [address] Sheila Campbell MD [facility] [address] [place] [address] documented as of this encounter Procedures Procedure Name Priority Date/Time Associated Diagnosis Comments FILM LIBRARY STORAGE ONLY MAMMO Routine 03/25/2012 4:35 PM EST documented in this encounter Results * Film Library- Storage only Mammo (03/25/2012 4:35 PM EST) 03/25/2012 4:35 PM EST Narrative RAD - 11/23/2013 11:30 AM EDT This is a non-reportable exam. Procedure Note Damian Bowman - 11/23/2013 This is a non-reportable exam. Julita Baires MD IMG FILM LIBRARY ORD ERABLES [facility] [address] [place] [address] documented in this encounter Visit Diagnoses Not on filedocumented in this encounter Care Teams Tire Recapping Machine Operator Relationship Specialty Start Date End Date Unknown None PCP - General 12/06/12 12/07/12 documented as of this encounter
--- OUTSIDE RECORDS SUMMARY | 2024-05-06 01:04 | XMS_ITS | Encounter Summary ---
Author Organization [facility] [place] [address] Care Team Providers Care Night Order Selector Name Role Phone Stephani Christopher MD Primary Care Provider [phone] Encounter Details Date Type Department Care Team (Latest Contact Info) Description 03/14/2013 3:28 PM EST - 03/14/2013 11:59 PM EST Hospital [place] [id number] Abnormal mammogram, unspecified Social History Tobacco Use Types Packs/Day Years [...] 1:00 PM EDT Office Visit Dermatology at [facility] [address] [place] [address] Sheila Campbell MD [facility] [place] [address] documented as of this encounter Procedures Procedure Name Priority Date/Time Associated Diagnosis Comments MAMMO BREAST US LIMITED Routine 03/14/2013 4:23 PM EST Abnormal mammogram, unspecified documented in this encounter Results * Mammo breast US unilateral bilateral (03/14/2013 4:23 PM EST) Anatomical Region Laterality Modality Breast N/A Mammography 03/14/2013 4:23 PM EST Impressions 03/15/2013 10:28 AM EST IMPRESSION: Left breast: BI-RADS Category 2 for BENIGN cysts. Recommend routine screening at a frequency based on the patient's age and risk factors. Narrative 03/15/2013 10:28 AM EST LEFT DIAGNOSTIC MAMMOGRAM AND LEFT BREAST ULTRASOUND ON 03/14/13: HISTORY: Call back from screening mammogram dated 02/28/13 for question of mass in upper left breast COMPARISON: Bilateral mammogram 02/28/13, 03/25/12, 03/17/12 TECHNIQUE: Additional views of the left breast were obtained in the MLO and ML projections with 2D/3D tomosynthesis in addition to 2D images in the ML and XCCL x3 projections. Targeted ultrasound of the left breast was performed. FINDINGS: Additional views re-demonstrate an oval, well circumscribed mass measuring approximately 7 - 8mm mammographically at the 0100 position, posterior third of the breast. Targeted ultrasound performed at the 0100 position, 4cm from the nipple demonstrate an oval, mildly lobulated anechoic simple appearing cyst measuring 8mm maximal. To confirm the sonographic and mammographic correlation, a metallic BB marker was placed at the site of this lesion and additional mammographic views were obtained. The BB marker confirmed the correlation between the ultrasound and the mammogram. No other suspicious lesions are seen. During real-time scanning, several additional simple appearing cysts were visualized. Procedure Note Jaye Jacome MD - 03/15/2013 LEFT DIAGNOSTIC MAMMOGRAM AND LEFT BREAST ULTRASOUND ON 03/14/13: HISTORY: Call back from screening mammogram dated 02/28/13 for question ofmass in upper left breast COMPARISON: Bilateral mammogram 02/28/13, 03/25/12, 03/17/12 TECHNIQUE: Additional views of the left breast were obtained in the MLOand ML projections with 2D/3D tomosynthesis in addition to 2D images in the MLand XCCL x3 projections. Targeted ultrasound of the left breast wasperformed. FINDINGS: Additional views re-demonstrate an oval, well circumscribed mass measuring approximately 7 - 8mm mammographically at the 0100 position, posterior third of the breast. Targeted ultrasound performed at the 0100 position, 4cm from the nipple demonstrate an oval, mildly lobulatedanechoic simple appearing cyst measuring 8mm maximal. To confirm the sonographicand mammographic correlation, a metallic BB marker was placed at the site ofthis lesion and additional mammographic views were obtained. The BB markerconfirmed the correlation between the ultrasound and the mammogram. No othersuspicious lesions are seen. During real-time scanning, several additional simple appearing cysts were visualized. IMPRESSION IMPRESSION: Left breast: BI-RADS Category 2 for BENIGN cysts. Recommend routinescreening at a frequency based on the patient's age and risk factors. Junie Villasenor MD IMG MAMMO ORD ERABLES documented in this encounter Visit Diagnoses Diagnosis Abnormal mammogram, unspecified documented in this encounter Care Teams Night Order Selector Relationship Specialty Start Date End Date Stephani Christopher MD [address] [place] [address] PCP - General 12/08/12 12/05/14 documented as of this encounter
--- OUTSIDE RECORDS SUMMARY | 2024-05-06 01:04 | XMS_ITS | Encounter Summary ---
Author Organization [facility] Address [address] [place] [address] Care Team Providers Care Air Bag Buffer Name Role Phone Dayne Pricila Jeff NP Primary Care Provider [phone] Encounter Details Date Type Department Care Team (Late st Contact Info) Description 03/17/2023 Lab Requisition [facility] Pathology & Laboratory Medicine - [address] [address] Outr Resulting Lab, Provider Social History Tobacco Use Types Packs/Day [...] RNA BY PCR Routine 03/17/2023 8:52 EST documented in this encounter Results * HEPATITIS C AB W REFLEX TO HCV RNA BY PCR (03/17/2023 8:52 EST) Hep C Antibody Negative Negative 03/17/2023 18:58 EST [facility] Blood VENOUS BLOOD / Unknown 03/17/2023 8:52 EST 03/17/2023 16:30 EST us Provider Outr Resulting Lab CHEMISTRY & BLOOD GA S ORDERABLES Final Result [facility] [address] [place] [address] documented in this encounter Visit Diagnoses Not on filedocumented in this encounter Care Teams Air Bag Buffer Relationship Specialty Start Date End Date Pricila Oscar NP PCP - General 10/18/14 documented as of this encounter
--- OUTSIDE RECORDS SUMMARY | 2024-05-06 01:04 | XMS_ITS | Encounter Summary ---
Author Organization [facility] Address [address] [place] [address] Care Team Providers Care Developer Designer Name Role Phone Unknown, Provider Primary Care Provider Unava ilable Encounter Details Date Type Department Care Team (Late st Contact Info) Description 04/10/1999 Results Only [facility] [address] [place] [address] Delia Lang MD [address] [address] Social History Tobacco Use Types Packs/Day Years [...] Priority Date/Time Associated Diagnosis Comments CYTOPATHOLOGY Routine 04/10/1999 9:17 EST documented in this encounter Results * CYTOPATHOLOGY (04/10/1999 9:17 EST) Pathology Report: CYTOPATHOLOGY REPORT Reports generated via electronic interface contain original data; however they are lacking the format of the original report. Caution should be taken when reading/interpreti ng unformatted reports. Name: ? CARY GUAJARDO ? Accession #: ? [id number] : ? 1965 (Age: 33) ??F ?Collect Date: ? 04/10/1999 Location: ?Receive Date: ? 04/10/1999 Provider: ?DELIA LANG MD Copy to: ?DLEIA LANG MD ? Specimen/Source: ?Pap Smear (One Slide) Last Menstrual Period: ? GYNECOLOGIC ??CYTOPATHOLOGY ??REPORT Name: CARY GUAJARDO ?[facility] : 1965 ?? 33Y F ?Client ID: [id number] SS#: [id number] ? Clinician: DELIA LANG MD ?? Location: [facility] ??Copy to: ?? Specimen: ?Pap Smear (One Slide) ? Source: Cervix/Endocervix ?Collected: 04/08/99 ? Received: 04/10/1999 ?LMP: 03/27/99 ? Hormone Therapy: No ? : No ? Radiation Therapy: No ?? Post : No ?Chemotherapy: No ?IUD: No ? Prev Abnormal Pap: No ?? Clinical Hx: ?(Blank hatch indicate information not provided on requisition) SPECIMEN ADEQUACY: ? Satisfactory For Evaluation ?? GENERAL CATEGORIZATION: ? WITHIN NORMAL LIMITS ? Reviewed And Electronically Signed By: ? Aneta Rea, CT(ASCP) ? Report Date: ?? 04/10/1999 [facility] Archived Tests - Final Diagnosis Text Field: Clinical History : ? Document reviewed and electronically signed by: ? Conversion ? Report Date: ??04/10/1999 00:00 End of Report ADAMA DUBON 04/10/1999 9:17 EST 04/10/1999 9:18 EST us Delia Lang MD PATHOLOGY ORDERABLES Final Resul t Performing Organization Address City/State/[facility] Co de Phone Number ADAMA DUBON [address] [place] [address] documented in this encounter Visit Diagnoses Not on filedocumented in this encounter Care Teams Developer Designer Relationship Specialty Start Date End Date Unknown, Provider, PCP - General 05/03/09 10/17/14 documented as of this encounter
--- OUTSIDE RECORDS SUMMARY | 2024-05-06 01:04 | XMS_ITS | Encounter Summary ---
Author Organization [facility] [place] [address] Care Team Providers Care Birdcage Assembler Name Role Phone Stephani Christopher MD Primary Care Provider [phone] Encounter Details Date Type Department Care Team (Late st Contact Info) Description 03/01/2013 [place] [address] Junie Villasenor MD [facility] [place] [address] Abnormal mammogram, unspecified (Primary Dx) Social History Tobacco Use Types Packs/Day Years [...] 1:00 PM EDT Office Visit Dermatology at [facility] [address] [place] [address] Sheila Campbell MD [facility] [address] [place] [address] documented as of this encounter Results * Mammo breast US [...] Junie Villasenor MD IMG MAMMO ORD ERABLES * Mammo call back diagnostic extra view unilateral (03/14/2013 4:23 PM EST) Anatomical Region Laterality [...] this encounter Visit Diagnoses Diagnosis Abnormal mammogram, unspecified- Primary Abnormal mammogram, unspecified Abnormal mammogram, unspecified documented in this encounter Care Teams Birdcage Assembler Relationship Specialty Start Date End Date Stephani Christopher MD [address] [place] [address] PCP - General 12/08/12 12/05/14 documented as of this encounter
--- OUTSIDE RECORDS SUMMARY | 2024-05-06 01:04 | XMS_ITS | Encounter Summary ---
Author Organization [facility] Address [address] [place] [address] Care Team Providers Care Director Fraud Name Role Phone Unknown, Provider Primary Care Provider Unava ilable Encounter Details Date Type Department Care Team (Late st Contact Info) Description 04/10/2004 Results Only [facility] - [facility] conversion [address] [place] [address] Onelia Higgins, BERT [address] [facility] [address] Social History Tobacco Use Types [...] Priority Date/Time Associated Diagnosis Comments CYTOPATHOLOGY Routine 04/10/2004 0:00 EST documented in this encounter Results * CYTOPATHOLOGY (04/10/2004 0:00 EST) Pathology Report: CYTOPATHOLOGY REPORT Reports generated via electronic interface contain original data; however they are lacking the format of the original report. Caution should be taken when reading/interpreti ng unformatted reports. Name: ? CARY GUAJARDO ? Accession #: ? [id number] : ? 1965 (Age: 38) ??F ?Collect Date: ? 04/10/2004 Location: ? [facility] ? Receive Date: ? 04/12/2004 Provider: ?ONELIA HIGGINS PROFESSIONAL SHOPPER Copy to: ? Specimen/Source: ?ThinPrep Pap Test, Cervix/Endocervix Last Menstrual Period: ? Previous Gynecologic Pathology: ? Yes: 09/06/03 Atypical squamous cells of underermined significance Treatment History: ? Miscellaneous treatment: 09/14/03 hysterscopy, D+C, Laparoscopy with excision of endometriosis and lysis of adhesions. ??Dx Peritoneal Endometriosis Other: ? HPVA - HPV testing requested if ASC-US on the current ThinPrep Pap test. ? SPECIMEN ADEQUACY ? Satisfactory for Evaluation - transformation zone component present GENERAL CATEGORIZATION ? Negative for Intraepithelial Lesion or Malignancy INTERPRETATION ? Reactive cellular changes associated with inflammation present (includes repair). ? Document reviewed and electronically signed by: ? JO CARMONA MD ? Report Date: ??04/17/2004 13:41 End of Report ADAMA DUBON 04/10/2004 04/12/2004 us Onelia Higgins NP PATHOLOGY ORDERABLES Final R esult ADAMA DUBON [address] [place] [address] documented in this encounter Visit Diagnoses Not on filedocumented in this encounter Care Teams Director Fraud Relationship Specialty Start Date End Date Unknown, Provider, PCP - General 05/03/09 10/17/14 documented as of this encounter
--- OUTSIDE RECORDS SUMMARY | 2024-05-06 01:04 | XMS_ITS | Encounter Summary ---
Author Organization [facility] Address [address] [place] [address] Care Team Providers Care Religion Department Chair Name Role Phone Unavailable Primary Care Provider Unavailabl e Encounter Details Date Type Department Care Team (Late st Contact Info) Description 05/01/2009 Orders Only [facility] - [facility] ([facility]) [address] [place], [place] [id number] Chen Webster MD [address] [place] [address] Social History Tobacco Use Types Packs/Day Years [...] Procedure Name Priority Date/Time Associated Diagnosis Comments SURGICAL PATHOLOGY Routine 05/01/2009 0:00 EST documented in this encounter Results * SURGICAL PATHOLOGY (05/01/2009 0:00 EST) Pathology Report: SURGICAL PATHOLOGY REPORT ? Reports generated via electronic interface contain original data; ? however they are lacking the format of the original report. ? Caution should be taken when reading/interpreti ng unformatted reports. ? Name: ? CARY GUAJARDO ? Accession #: ? [id number] ? : ? 1965 (Age: 43) ??F ? Collect Date: ? 05/01/2009 ? Location: ? [facility] ? Receive Date: ? 05/01/2009 ? Provider: CHEN WEBSTER MD ? Copy to: ? Final Pathologic Diagnosis: ? Uterus and cervix, vaginal hysterectomy: ? 1. ??Endometrium: ? - Secretory endometrium. ? 2. ??Myometrium: ? - ??No specific pathologic features. ? 3. ??Cervix: ? - Parakeratosis. ? - Benign nabothian cysts and tunnel clusters. ? 4. ??Serosa: ?- No specific pathologic features. ? Document reviewed and electronically signed by: ? Holger Ciampa, MD ? Report ??Date: 2009 15:19 ? By the signature above, the attending physician certifies that he/she has ? personally conducted a gross and/or microscopic examination of the described ? specimens and rendered or confirmed the above diagnosis. ? Specimen(s) Received: ? Cervix with uterus ? Clinical History: ? Pelvic pain; prolapse; H/O endometriosis; vaginal hysterectomy; LMP: /18 ? Gross Description: ? Received in formalin labelled Poginy, Cary and A ??cervix, uterus is a 105 gram corpus uteri and cervix which measures 8.0 cm fundus to cervix by 5.0 ?? cm cornu to cornu by 4.5 cm anterior to posterior. ??There are no fallopian tubes nor ovaries received with the specimen. ??The endometrium is light krishna, slightly lush, focally mildly hyperemic and measures up to 0.2 cm in thickness. ??The ? myometrium is firm, light krishna and measures up to 2.0 cm in thickness. ??The ? ectocervix is focally hyperemic, but is otherwise generally smooth and white, ?? and the endocervix is unremarkable. ??The squamocolumnar junction is discernible. The serosa is smooth and light krishna. ??Plastic Top Assembler sections of the specimen ?? are submitted as follows: ? BLOCK COMBS ? A1 ?Anterior endomyometrium, full thickness ? A2 ?Anterior endomyometrium, full thickness ? A3 ?Posterior endomyometrium, full thickness ? A4 ?Posterior endomyometrium, full thickness ? A5 ?Anterior and posterior cervix ? A6 ?Serosa from posterior lower uterine segment and cervix, four ? perpendicular sections ? (J. Tessitore)/kmm ? End of Report ? [facility] 05/01/2009 05/01/2009 19: 42 EST us Chen Webster MD PATHOLOGY ORDERABLES Final Resu lt [facility] [address] [place] [address] documented in this encounter Visit Diagnoses Not on filedocumented in this encounter
--- OUTSIDE RECORDS SUMMARY | 2024-05-06 01:04 | XMS_ITS | Encounter Summary ---
[place] [address] Care Team Providers Care Industrial Technician Name Role Phone Yris Cerna APRN Primary Care Provider [phone] Encounter Details Date Type Department Care Team (Late st Contact Info) Description 12/22/2018 12:14 PM EDT - 12/22/2018 11:59 PM EDT Hospital Encounter Mammography/[place] [address] Yris Cerna APRN [address] [place] [address] Visit for screening mammogram Discharge Disposition: Home [...] 1:00 PM EDT Office Visit Dermatology at [facility] [address] [place] [address] Sheila Campbell MD [facility] [place] [address] documented as of this encounter Procedures Procedure Name Priority Date/Time Associated Diagnosis Comments MAMMO SCREENING CAD AND CHAMP BILATERAL Routine 12/22/2018 12:43 PM EDT Visit for screening mammogram documented in this encounter Results * Mammo Screening Cad and Champ Bilateral (12/22/2018 12:43 PM EDT) Anatomical Region Laterality Modality Breast Bilateral Mammography Narrative 12/23/2018 10:11 AM EDT BILATERAL MAMMOGRAPHY REASON FOR EXAM: [...] CONCLUSION: No mammographic evidence of malignancy. RECOMMENDATION: Medical organizations agree that annual screening mammography beginning at age 40 saves the most lives. The risks of screening are negligible compared to dying from breast cancer or suffering from more aggressive treatment required when detected at a later stage. No woman is at low risk for breast cancer. Some women, because of their family history, a genetic tendency, or certain other factors, should be screened with breast MRI along with mammograms. (The number of women who fall into this category is very small). The patient and health care provider should discuss the patient history and decide if earlier screening and breast MRI are appropriate. Screening should continue as long as a woman is in good health and is expected to live 10 years or longer. Screening mammography may not detect 10-15% of breast cancers. Women should report any breast changes to a health care provider right away. A result letter has been sent to this patient by the [facility]. BIRADS CATEGORY 1: NEGATIVE Yris Cerna APRN IMG MAMMO ORDERABLE S documented in this encounter Visit Diagnoses Diagnosis Visit for screening mammogram Other screening mammogram documented in this encounter Care Teams Industrial Technician Relationship Specialty Start Date End Date Yris Cerna APRN [address] [place] [address] PCP - General Family Medicine 07/30/18 documented as of this encounter
--- OUTSIDE RECORDS SUMMARY | 2024-05-06 01:04 | XMS_ITS | Encounter Summary ---
Author Organization [facility] Address [place] [address] Care Team Providers Care Automotive Generator Repairer Name Role Phone YehudacharissesiomaraMariamYris APRN Primary Care Provider [phone] Reason for Visit * Reason Comments Skin Check FSE Encounter Details Date Type Department Care Team (Late st Contact Info) Description 12/22/2018 10:15 AM EDT Office Visit Dermatology at [facility] [address] [place] [address] Chandni Monique MD [facility] [address] [address] Benign nevus; SK (seborrheic keratosis); AK (actinic keratosis); Dermatofibroma; Guardado angioma Social History Tobacco Use Types Packs/Day Years Used Date Smoking Tobacco: Former Smokeless Tobacco: Never Sex and Gender Information Value Date Recorded Sex Assigned at Female 12/04/2020 12:10 PM EDT Gender Identity Female 12/04/2020 12:10 PM EDT Sexual Orientation Straight 12/04/2020 12 :10 PM EDT documented as of this encounter Patient Instructions * Patient Instructions* Alycia Roger CCMA - 12/22/2018 10:15 AM EDT Actinic Keratoses You have been diagnosed today with Actinic Keratosis (AK). These dry, scaly patches are considered the earliest stage in the development of skin cancer. In rare cases, an AK can progress to skin cancer. Because of this risk, AKs are usually treated. You were treated today with Liquid Nitrogen. This is the most common treatment for AKs. Liquid nitrogen is extremely cold, and freezes the surface of the skin, causing the lesion to flake off. Treatment with liquid nitrogen can be uncomfortable, but discomfort should subside after a couple of hours. The area treated will look red and irritated, and it may blister up or turn dark, then fall off. This is normal! You do not need any special treatment for the area, but you may find cold compresses and/or a lightapplication of Vaseline soothing. For best results, do not rub or pick at the healing lesion. Expected healing time is 3-4 weeks. Please contact the Dermatology clinic at [phone] if the lesion has not fully resolved after 6 weeks. documented in this encounter Progress Notes * Chandni Monique MD - 12/22/2018 10:15 AM EDT DERMATOLOGY ESTABLISHED PATIENT CLINIC NOTE DATE OF SERVICE: 12/22/2018 Cary Guajardo : 1965 PROVIDER: Chandni Monique MD PATIENT PREFERENCES: -prefers to be called: Cary garcia to communicate detailed result information by: Mail?: Y MyDH?: Y Voicemail?: Y and what #: [phone] (H) ?? Chief Complaint Patient presents with ??? Skin Check FSE HPI Cary Guajardo is a 53 y.o. year old female, established to Dermatology. Last seen by Dr. Martin on 02/24/18. - Patient presents for full body skin exam due to concerns about potential for skin cancer. Has patient had any sunburns in past? yes Does patient perform self skin exams? yes Does patient wear sunscreen? yes Does patient wear a hat with sun exposure? yes Dresses purposefully to avoid sun exposure?no Any new or changing spots on scalp, neck, back, lips, trunk, nails or genital areas? As below Reports the followin. lesion located adjacent to right ear lobe - Present about a year, asymptomatic, denies bleeding/scaling/itching. 2. On exam today she notes a lesion on left upper cutaneous lip, feels rough occasionally to touch. Review of Systems: Feels well, no fatigue, no weight loss, no other skin concerns Sunscreen Use?: yes Skin Hx: Skin Cancer Type: BCC Location: left neck Treated with: excision at [facility] When: 10/16/14 12/21/17: Skin, left forehead, shave ?? biopsy ONLY: - BASAL CELL CARCINOMA, NODULAR AND INFILTRATIVE PATTERNS, extending to peripheral ??and deep specimen edges - s/p mohs surgery 02/24/18 Dr. Martin Seborrheic dermatitis on scalp Eczema: no Psoriasis: no Staph Infections: no Herpes Infections: no ?? FHX: -skin cancer?: Y What type?: unknown Who?: Father and grandfather -eczema?: no -psoriasis?: no -acne?: no -rosacea?: no -Daughter has unknown skin issues EXAM General: AAOx3 Well-nourished adult in no [...] skin examination. Patient also advised that nail nepalese, makeup and jewelry/watches all interfere with a thorough examination. Patient chose the below: A total body skin exam was performed. This includes examination of the skin of the face, ears, neck, chest, axillae, left and right upper and lower extremities, hands and feet, abdomen, buttocks and external genitals. Lymph nodes were not examined unless commented upon in exam below DIAGNOSIS/SKIN FINDINGS/ASSESSMENT/PLAN: # Benign Nevi - 2 mm flesh colored papule at inferior aspect of tragus, 6 x 5 mm dome shaped brown normal nevus on left plantar foot - Discussed benign nature of lesion(s) and provided reassurance. No treatment necessary at this time. # Seborrheic Keratoses - face, trunk, and extremities - Explained that these are hereditary and adult-acquired. Reassured patient of benign nature. No treatment necessary. - Discussed cosmetic removal with cryotherapy. Patient quoted $100 for removal of 1-10, and $200 for removal of 11-20. Patient declined cosmetic removal today. - Advised patient to call if they become inflamed or irritated. # Actinic Keratosis - Left upper cutaneous lip, presternal chest x2 - Explained etiology, natural history and premalignent potential of these lesions. - Discussed treatment with cryotherapy, including the risks and benefits. - Patient elects to proceed with cryotherapy today. - Will consider biopsying the left upper cutaneous lip lesion if not resolved Procedure: Destruction of lesion(s) with cryotherapy (LN2). Location(s): As noted above. Number: 3 Discussed procedure and expectations, including risks (especially hypopigmentation) and benefits. Verbal consent obtained. Frozen with LN2, 15-30 second thaw time, twice. There were no complications;patient tolerated the procedure well. Post-procedure expectations and wound care reviewed. - Instructed patient to return to clinic for re-evaluation if lesion(s) does not resolve with this treatment. #Dermatofibroma - Left thigh, left buttocks, left calf - Discussed benign nature of lesion and provided reassurance. No treatment necessary. - Explained that if it were to become irritated, punch removal is an option but would be trading the papule for a scar. Guardado Angiomas- Multiple 0.2-0.4cm bright red, well-demarcated papules on the abdomen - Reassured of benign nature FOLLOW UP WHEN: 6 months FOR WHAT: AKs f/u LENGTH OF VISIT: 15 NUMBING?: no PICTURES NEEDED? no OK D/B?: yes NOTES: consider biopsying left upper lip lesion if not resolved I am documenting this encounter acting as the scribe for and in the presence of ZARIA Cerda I performed the above scribed service and agree with the accuracy of the documentation in this encounter. Chandni Monique MD Section of Dermatology [facility] Cary Guajardo 12/22/2018 [id number] documented in this encounter Plan of Treatment Upcoming Encounters Date Type Department Care Team (Late st Contact Info) Description 08/17/2024 1:00 PM EDT Office Visit Dermatology at [facility] [address] [place] [address] Sheila Campbell MD [facility] [address] [place] [address] documented as of this encounter Visit Diagnoses Diagnosis Benign nevus Benign neoplasm of skin, site unspecified SK (seborrheic keratosis) Other seborrheic keratosis AK (actinic keratosis) Actinic keratosis Dermatofibroma Benign neoplasm of skin, site unspecified Guardado angioma Nevus, non-neoplastic documented in this encounter Care Teams Automotive Generator Repairer Relationship Specialty Start Date End Date Mariam CernaAIMEE lopez [address] [place] [address] PCP - General Family Medicine 07/30/18 documented as of this encounter
--- OUTSIDE RECORDS SUMMARY | 2024-05-06 01:04 | XMS_ITS | Referral Summary ---
Author Organization [facility] Address [address] [place] [address] Care Team Providers Care Morphology Teacher Name Role Phone Pricila Oscar PAROLE HEARING OFFICER Primary Care Provider [phone] Social History Tobacco Use Types Packs/Day Years Used Date Smoking Tobacco: Never Assessed Comments Unknown Sex and Gender Information Value Date Recorded Sex Assigned at Not on file Legal Sex Female 18:23 EST Gender Identity Not on file Sexual Orientation Not on file Plan of Treatment Not on file Procedures Procedure Name Priority Date/Time Associated Diagnosis Comments HEPATITIS C AB W REFLEX TO HCV RNA BY PCR Routine 03/17/2023 8:52 EST from Last 3 Months or Most Recently Relevant to Health Maintenance Results * HEPATITIS C AB W REFLEX TO HCV RNA BY PCR (03/17/2023 8:52 EST) Hep C Antibody Negative Negative 03/17/2023 18:58 EST [facility] Blood VENOUS BLOOD / Unknown 03/17/2023 8:52 EST 03/17/2023 16:30 EST us Provider Outr Resulting Lab CHEMISTRY & BLOOD GA S ORDERABLES Final Result [facility] [address] [place] [address] from Last 3 Months or Most Recently Relevant to Health Maintenance Care Teams Morphology Teacher Relationship Specialty Start Date End Date Pricila Oscar, BERT PCP - General 10/18/14
--- OUTSIDE RECORDS SUMMARY | 2024-05-06 01:04 | XMS_ITS | Encounter Summary ---
[place] [address] Care Team Providers Care Tool Carrier Name Role Phone Pricila Oscar APRN Primary Care Provider [phone] Encounter Details Date Type Department Care Team (Latest Contact Info) Description 12/03/2016 10:08 AM EDT - 12/03/2016 11:59 PM EDT Hospital [place] [address] Pricila Oscar APRN [address] [place], [place] [id number] Visit for screening mammogram Discharge Disposition: Home [...] Sig Dispensed Refills Start Date End Date fluocinolone acetonide (SYNALAR) 0.01 % Solution Apply topically for itch on scalp daily for up to 2 weeks then 1-3 times/week prn 60 mL 1 12/03/2016 documented as of this encounter Plan of Treatment Upcoming Encounters Date Type Department Care Team (Late Contact Info) Description 08/17/2024 1:00 PM EDT Office Visit Dermatology at [facility] [address] [place] [address] Sheila Campbell MD [facility] [place] [address] documented as of this encounter Procedures Procedure Name Priority Date/Time Associated Diagnosis Comments MAMMO SCREENING CAD AND CHAMP BILATERAL Routine 12/03/2016 10:39 AM EDT Visit for screening mammogram documented in this encounter Results * Mammo Screen CAD and Champ Bilat (Generic) (12/03/2016 10:39 AM EDT) Anatomical Region Laterality Modality Breast Bilateral Mammography Narrative 12/03/2016 10:44 AM EDT Bilateral mammography Reason for exam: ROUTINE MAMMO; LAST MAMMO 12/06/14 Technique: CC and MLO views were obtained of each breast using standard 2-D mammography as well as 3-D tomosynthesis. Computer aided detection was used. Comparison: This is compared with prior images. Findings: The breasts are heterogeneously dense, which may obscure small masses. There are no suspicious microcalcifications, masses, or areas of distortion. The pattern is stable. Stable well-circumscribed left breast mass, previously described as simple cyst. Stable MLO superior asymmetry, right breast Conclusion: No mammographic evidence of malignancy. Recommendation: Routine screening. BI-RADS Category 2: Benign findings. * ??The [place] [employer] and The Society of Breast Imaging recommend annual screening beginning at age 40 for the general female population. * ??Screening should continue as long as a woman is in good health and is expected to live 10 more years or longer. * ??All women should be familiar with the known benefits, limitations, and potential harms linked to breast cancer screening. They also should know how their breasts normally look and feel and report any breast changes to a health care provider right away. * ??Some women, because of their family history, a genetic tendency, or certain other factors, should be screened with MRIs along with mammograms. (The number of women who fall into this category is very small.) The patient and health care provider should discuss the patient history and decide if earlier screening and breast MRI are appropriate. Pricila Oscar APRN IMG MAMMO ORDERABL ES documented in this encounter Visit Diagnoses Diagnosis Visit for screening mammogram Other screening mammogram documented in this encounter Care Teams Tool Carrier Relationship Specialty Start Date End Date Pricila Oscar APRN PCP - General 12/06/14 07/29/18 documented as of this encounter
--- OUTSIDE RECORDS SUMMARY | 2024-05-06 01:04 | XMS_ITS | Encounter Summary ---
Author Organization [facility] Address [address] [place] [address] Care Team Providers Care Machine Bander And Cellophaner Helper Name Role Phone Unknown, Provider Primary Care Provider Unava ilable Encounter Details Date Type Department Care Team (Late st Contact Info) Description 05/11/2000 Results Only [facility] [address] [place] [address] Delia Lang MD [address] [address] Social History Tobacco Use Types [...] Priority Date/Time Associated Diagnosis Comments CYTOPATHOLOGY Routine 05/11/2000 0:00 EST documented in this encounter Results * CYTOPATHOLOGY (05/11/2000 0:00 EST) Pathology Report: CYTOPATHOLOGY REPORT Reports generated via electronic interface contain original data; however they are lacking the format of the original report. Caution should be taken when reading/interpreti ng unformatted reports. Name: ? CARY GUAJARDO ? Accession #: ? [id number] : ? 1965 (Age: 35) ??F ?Collect Date: ? 05/11/2000 Location: ? [facility] ? Receive Date: ? 05/13/2000 Provider: ?DELIA LANG MD Copy to: ? Specimen/Source: ?ThinPrep Pap Test, Cervix/Endocervix Last Menstrual Period: ? 04/23/00 ? SPECIMEN ADEQUACY ? Satisfactory for evaluation. GENERAL CATEGORIZATION ? Epithelial Cell Abnormality DESCRIPTIVE DIAGNOSIS ? Atypical squamous cells of undetermined significance (ASCUS), favor reactive process. RECOMMENDATION ? Recommend repeat Pap test in 3-6 months or further follow up, as clinically indicated. ? Document reviewed and electronically signed by: ? LUCINA ERVIN MD ? Report Date: ??05/19/2000 15:14 End of Report [facility] 05/11/2000 05/13/2000 us Delia Lang MD PATHOLOGY ORDERABLES Final Resul t [facility] [address] [place] [address] documented in this encounter Visit Diagnoses Not on filedocumented in this encounter Care Teams Machine Bander And Cellophaner Helper Relationship Specialty Start Date End Date Unknown, Provider, PCP - General 05/03/09 10/17/14 documented as of this encounter
--- OUTSIDE RECORDS SUMMARY | 2024-05-06 01:04 | XMS_ITS | Encounter Summary ---
Author Organization [facility] Address [address] [place] [address] Care Team Providers Care Insulation Hoseman Name Role Phone Unknown, Provider Primary Care Provider Unava ilable Encounter Details Date Type Department Care Team (Late st Contact Info) Description 05/06/2006 Results Only [facility] [address] [place] [address] Chen Webster MD [address] [place] [address] Social History Tobacco Use Types Packs/Day Years [...] Priority Date/Time Associated Diagnosis Comments CYTOPATHOLOGY Routine 05/06/2006 0:00 EST documented in this encounter Results * CYTOPATHOLOGY (05/06/2006 0:00 EST) Pathology Report: CYTOPATHOLOGY REPORT Reports generated via electronic interface contain original data; however they are lacking the format of the original report. Caution should be taken when reading/interpreti ng unformatted reports. Name: ? CARY GUAJARDO ? Accession #: ? [id number] : ? 1965 (Age: 41) ??F ?Collect Date: ? 05/06/2006 Location: ? [facility] ? Receive Date: ? 05/08/2006 Provider: ?CHEN WEBSTER MD Copy to: ? Specimen/Source: ?ThinPrep Pap Test, Vagina/Cervix/Endo cervix, processed on [employer] App ThinPrep Imaging System, with manual evaluation Last Menstrual Period: ? 04/24/06 Previous Gynecologic Pathology: ? ASC-US Other: ? Additional clinical information: HPV negative ? SPECIMEN ADEQUACY ? Satisfactory for Evaluation - transformation zone component present GENERAL CATEGORIZATION ? Epithelial Cell Abnormality INTERPRETATION ? Squamous Cell Abnormality - Atypical squamous cells, undetermined significance (ASC-US). EDUCATIONAL NOTES/RECOMMENDATI ONS ? [facility] recommends following the 2001 Consensus Guidelines for the Management of Women with Cervical Cytological Abnormalities (DAGO,2002;287:212 0-9). Management algorithms have been distributed by [facility] and are available online at www.ASCCP.org. ? Document reviewed and electronically signed by: ? ZURDO PALMA MD ? Report Date: ??05/18/2006 10:04 End of Report [facility] 05/06/2006 05/08/2006 us Chen Webster MD PATHOLOGY ORDERABLES Final Resu lt [facility] [address] [place] [address] documented in this encounter Visit Diagnoses Not on filedocumented in this encounter Care Teams Insulation Hoseman Relationship Specialty Start Date End Date Unknown, Provider, PCP - General 05/03/09 10/17/14 documented as of this encounter
--- OUTSIDE RECORDS SUMMARY | 2024-05-06 01:04 | XMS_ITS | Encounter Summary ---
Author Organization [facility] Address [address] [place] [address] Care Team Providers Care Miller Rod Mill Name Role Phone Unknown, Provider Primary Care Provider Unava ilable Encounter Details Date Type Department Care Team (Latest Contact Info) Description 10/16/2014 8:37 EDT - 10/16/2014 23:59 EDT Hospital Encounter [address] [address] Unknown, Provider, Discharge Disposition: Home or Self Care Social History Tobacco Use Types Packs/Day Years Used Date Smoking Tobacco: Never Assessed Comments Unknown Sex and Gender Information Value Date Recorded Sex Assigned at Not on file Legal Sex Female 18:23 EST Gender Identity Not on file Sexual Orientation Not on file documented as of this encounter Discharge Disposition Disposition Code Departure Means Destination Home or Self Alf documented in this encounter Plan of Treatment Not on file documented as of this encounter Visit Diagnoses Not on filedocumented in this encounter Care Teams Miller Rod Mill Relationship Specialty Start Date End Date Unknown, Provider, PCP - General 05/03/09 10/17/14 documented as of this encounter
--- OUTSIDE RECORDS SUMMARY | 2024-05-06 01:04 | XMS_ITS | Encounter Summary ---
[facility] [place] [address] Care Team Providers Care Wire Spring Relay Adjuster Name Role Phone Stephani Christopher MD Primary Care Provider [phone] Encounter Details Date Type Department Care Team (Latest Contact Info) Description 02/28/2013 12:48 PM EST - 02/28/2013 11:59 PM EST Hospital [place] [id number] CLINIC, Stephani Kohler MD [address] [address] Discharge Disposition: Home Social History Tobacco Use [...] 1:00 PM EDT Office Visit Dermatology at [facility] [address] [place] [address] Sheila Campbell MD [facility] [address] [place] [address] documented as of this encounter Procedures Procedure Name Priority Date/Time Associated Diagnosis Comments MAMMO SCREENING CAD BILATERAL Routine 02/28/2013 1:18 PM EST documented in this encounter Results * Mammo digital bilateral Screening with CAD (02/28/2013 1:18 PM EST) Anatomical Region Laterality Modality Breast Bilateral Mammography 02/28/2013 1:18 PM EST Narrative 03/03/2013 9:47 AM EST REASON FOR EXAM: Screening ?? TECHNIQUE: Cranio-caudal (CC) and mediolateral oblique (MLO) views of the both breasts obtained with direct digital capture. The exam was evaluated by CAD Version 8.3.17. In addition to the routine 2D imaging this exam was also performed with 3D tomographic imaging in MLO and CC projections. ?? LEFT BREAST MAMMOGRAPHY ?? This is an indeterminate (ACR Category 0) mammogram of the LEFT breast. There is a question of a mass in the upper Left breast, requiring additional imaging. ? RIGHT BREAST MAMMOGRAPHY ?? This is a negative mammogram (ACR Category 1). There is a stable fibroglandular pattern without significant change as compared to prior studies. There is no mammographic evidence of cancer. ? The breasts are heterogeneously dense which may limit mammographic sensitivity for the detection of malignancy. ? CONCLUSION ?? ASSESSMENT IS INCOMPLETE: Additional imaging recommended (ACR Category 0) of the Left breast. [facility] will contact the patient to schedule additional imaging. ?? The contralateral breast is NEGATIVE (ACR Category 1). Routine screening mammography is recommended of the Right breast with the frequency dependent on the patient's age and breast cancer risk factors. ? Procedure Note Junie Villasenor MD - 03/03/2013 REASON FOR EXAM: Screening TECHNIQUE: Cranio-caudal (CC) and mediolateral oblique (MLO) views of theboth breasts obtained with direct digital capture. The exam was evaluated byCAD Version 8.3.17. In addition to the routine 2D imaging this exam was also performed with 3D tomographic imaging in MLO and CC projections. LEFT BREAST MAMMOGRAPHY This is an indeterminate (ACR Category 0) mammogram of the LEFT breast.There is a question of a mass in the upper Left breast, requiring additionalimaging. RIGHT BREAST MAMMOGRAPHY This is a negative mammogram (ACR Category 1). There is a stablefibroglandular pattern without significant change as compared to prior studies. There isno mammographic evidence of cancer. The breasts are heterogeneously dense which may limit mammographicsensitivity for the detection of malignancy. CONCLUSION ASSESSMENT IS INCOMPLETE: Additional imaging recommended (ACR Category 0)of the Left breast. [facility] will contact the patient toschedule additional imaging. The contralateral breast is NEGATIVE (ACR Category 1). Routine screening mammography is recommended of the Right breast with the frequencydependent on the patient's age and breast cancer risk factors. Stephani Christopher MD IMG MAMMO ORDERABLES documented in this encounter Visit Diagnoses Not on filedocumented in this encounter Care Teams Wire Spring Relay Adjuster Relationship Specialty Start Date End Date Stephani Christopher MD [address] [place] [address] PCP - General 12/08/12 12/05/14 documented as of this encounter
--- OUTSIDE RECORDS SUMMARY | 2024-05-06 01:04 | XMS_ITS | Encounter Summary ---
Author Organization [facility] Address [address] [place] [address] Care Team Providers Care Liner Worker Name Role Phone Unknown, Provider Primary Care Provider Unava ilable Encounter Details Date Type Department Care Team (Late st Contact Info) Description 10/16/2014 Results Only [facility] [phone] Minerva La, [address] [place], [place] [id number] Social History Tobacco Use Types Packs/Day Years [...] Date/Time Associated Diagnosis Comments SURGICAL PATHOLOGY Routine 10/16/2014 17 :57 EDT documented in this encounter Results * SURGICAL PATHOLOGY (10/16/2014 17:57 EDT) Pathology Report: SURGICAL PATHOLOGY REPORT Reports generated via electronic interface contain original data; however they are lacking the format of the original report. Caution should be taken when reading/interpret ing unformatted reports. Name: ? CARY GUAJARDO ? Accession #: ? [id number] ? : ? 1965 (Age: 49) ??F ? Collect Date: ? 10/16/2014 ? Location: ? [facility] ? Receive Date: ? 10/16/2014 ? Provider: MINERVA LA DO Copy to: JAYSON HERRERA MOLD POLISHER ? Final Pathologic Diagnosis: SKIN OF NECK, LEFT, EXCISION: - Epidermal reparative change and dermal scar. - No residual basal cell carcinoma identified. ?? Document reviewed and electronically signed by: KAM CLARK MD Report ??Date: 10/18/2014 12:57 By the signature above, the attending physician certifies that he/she has personally conducted a gross and/or microscopic examination of the described specimens and rendered or confirmed the above diagnosis. Specimen(s) Received: Basal cell left neck Clinical History: BCC L neck Intraoperative Interpretation: SKIN, LEFT, EXCISION (FSA1-FSA5): - No residual basal cell carcinoma, margins negative for tumor. - FSA1: ??12 o'clock tip: ??Negative for tumor - FSA2: ??6 o'clock tip: ??Negative for tumor. - FSA3-FSA5: ??Cross sections with 9 and 3 o'clock margins negative for tumor. - Reported to Dr. La at 8:40 AM. ??Patient identified prior to verbal report. ??Dr. Gilberto Ojeda 10/16/14 Gross Description: ? Received fresh labelled with proper patient identification (initials P, T) and basal cell left neck is an oriented elliptical excision of skin with a white suture designating 3 o'clock, a blue suture designating 6 o'clock, and a black suture designating 9 o'clock (2.0 cm from 12 o'clock to 6 o'clock, 0.6 cm from 3 o'clock to 9 o'clock, and is excised to a depth of 0.3 cm cm). There is a slightly raised central irregular lesion measuring 0.3 cm in diameter. The 3 o'clock aspect is blue inked and the 9 o'clock aspect is black inked. The specimen is serially sectioned from 12 o'clock to 6 o'clock and is entirely submitted for frozen section as FSA1-FSA5 with the interpretation as rendered above. The specimen is submitted for permanent section as follows: BLOCK COMBS A1- ??frozen section control FSA1, 12 o'clock tip, en face A2- ??frozen section control FSA2, 6 o'clock tip, en face A3- ??frozen section control FSA3, central section A4- ??frozen section control FSA4, central section A5- ??frozen section control FSA5, central section Ede Dean 10/17/2014 11:33 AM End of Report [facility] 10/16/2014 17:5 7 EDT 10/16/2014 17:57 EDT us Minerva La DO PATHOLOGY ORDERABLES Fi nal Result Performing Organization Address City/State/[facility] Co de Phone Number [facility] [address] [place] [address] documented in this encounter Visit Diagnoses Not on filedocumented in this encounter Care Teams Liner Worker Relationship Specialty Start Date End Date Unknown, Provider, PCP - General 05/03/09 10/17/14 documented as of this encounter
--- OUTSIDE RECORDS SUMMARY | 2024-05-06 01:04 | XMS_ITS | Encounter Summary ---
Author Organization [facility] [place] [address] Care Team Providers Care Nurse Assistant Name Role Phone Pricila Oscar APRN Primary Care Provider [phone] Encounter Details Date Type Department Care Team (Latest Contact Info) Description 02/24/2018 8:45 AM EST Procedure visit Dermatology at [facility] [address] [place] [address] Ed Hoffmann MD [facility] [address] [address] Basal cell carcinoma (BCC) of left forehead Social History Tobacco Use Types Packs/Day Years Used Date Smoking Tobacco: Former Smokeless Tobacco: Never Sex and Gender Information Value Date Recorded Sex Assigned at Female 12/04/2020 12:10 PM EDT Gender Identity Female 12/04/2020 12:10 PM EDT Sexual Orientation Straight 12/04/2020 12 :10 PM EDT documented as of this encounter Last Filed Vital Signs Vital Sign Reading Time Taken Comments Blood Pressure 108/52 02/24/2018 8:50 AM EST Pulse 70 02/24/2018 8:50 AM EST Temperature - - Respiratory Rate - - Oxygen Saturation - - Inhaled Oxygen Concentration - - Weight - - Height - - Body Mass Index - - documented in this encounter Patient Instructions * Patient Instructions* Keara Pro RN - 02/24/2018 8:45 AM EST Your staff surgeon today was Ed Hoffmann MD PhD. Instructions for the post- operative period areas below. Please keep as a reference: After Surgery 1. Avoid tobacco, smoking/vapors, cigars, and cannabis (marijuana) for at least 3 weeks after your surgery. These prevent proper healing and lead to worse scarring. Cutting back on tobacco is helpfulif you cannot abstain completely. 2. Do not drink alcohol for roughly 3 days as this can slow healing or cause bleeding. 3. Do not participate in athletic activities for 1 week, unless you were told a different timeline during your visit. Athletic activity is a relative term, but this is considered to be anything that could potentially raise your heartrate or blood pressure. Elevating your heart rate and blood pressure increases the risk of swelling, bleeding, wound opening, and it could lead to worse scarring. Walk ing at a leisurely pace is fine for most people, but not if you are walking for the purpose of exercise. When in doubt, take it easy or call us. 4. Do not lift anything heavier than 10 pounds for the first week unless told differently. 5. Some adjunct professor of english may need to be delayed or delegated such as vacuuming, mowing the lawn, snow shoveling, or caring for young children that need to be carried/lifted. Working any major muscle groups increases your heart rate and can increasing bleeding. 6. Avoid swimming, hot tubs, and direct water pressure for 3 weeks after surgery. You may shower, however, once your initial bandage comes off in 48 hours. 7. Avoid antibiotic ointments such as triple antibiotic creams. 8. Whenever possible, it is helpful to take photographs with your camera or cell phone of any problems or concerns you see with your wound. We often ask for photos when you call with questions. 9. Starting 2 months following surgery, you can begin firm massage to any areas of firm scar along your incision to soften the scar and reduce bumpiness. Do this 3 times per day, 3 minutes each time.Do not start massage before 2 months. 10. Your wound will appear almost completely healed soon after sutures are removed (about 1 week), but incisions can remain bright red for several weeks. Then the scarring and healing process continues under the skin for 6 months until to 2 years. The scar may become less red, less firm, and more subtle during this time; please note that the rate of improvement varies depending on the person. Most redness, discoloration, bumpiness resolves by 6 months, and most patients will look presentable within a few weeks after surgery. 11. Keep your follow-up appointments and make sure to continue to have your skin checked, as often as is recommended by your weather stripper, for new skin cancers. This is once per year for most patients. 12. Your can expect your scar to be red for several weeks with gradual fading of the redness. Your scar will also be raised and lumpy until the dissolvable sutures under the skin get absorbed by yourbody which can take 3-4 months. The scar will flatten eventually. a. If you have a skin condition called rosacea, the redness can last long-term, or you can get an increased appearance of red vessels to the skin. The appearance of vessels slightly improves, but tends to respond well to laser treatments. 13. Occasionally, about 10-20% of the time on the face, the stitches under the skin can spit out of the incision to the surface. It can start out looking like a pimple or blemish directly on your incision. Sometimes you can feel something poking through the incision. it can look also minic a small area of infection, so please let us know before you go to another provider for antibiotics. Thismeans that the suture may need to be trimmed or removed when you return for your wound check. This typically occurs a few weeks after surgery if it does occur. 14. To optimize your scar, and best cosmetic result, please avoid direct sunlight to your incision for the first 6 months following surgery. UV ray exposure to your incision may cause the redness to last longer, or to cause permanent darkening of your scar. You can avoid sun by covering your incision with a bandage when outdoors, wearing broad-rimmed hats, and wearing SPF 30 to 50 sunscreen (broad spectrum). 15. Your incision may still be healing up to 2 weeks after surgery. Because of this, avoid make-up and sunscreen until approximately 2 weeks after surgery. You can begin sooner if your skin edges look completely sealed. 16. Any time you have skin surgery or any type of surgery, you can experience mild sensation loss (numbness) in the area of surgery. Massage starting at 8 weeks after surgery can help. 17. Swelling and bruising is common, and expected, especially if your surgery site was on the forehead, cheeks, temples, nose, or eyelids. . Sometimes it can be quite profound, where the eyelids swell shut, or getting black eyes. This is especially true if you are on blood thinners such as aspirin. Swelling and bruising will peak at about 48 hours after surgery. Bruising and swelling will gradually resolve. You can use ice packs or a bag of frozen peas for 15-20 minutes, 20 minutes off, up to3-4 times daily to areas of swelling on the face. Use caution not to put the icy item directly ontoyour incision, or directly in contact with your skin as this can damage skin. Avoid prolonged use more than 20 minutes. The best way to use ice packs is over the bandage, or using a light cloth/papertowel barrier between the ice pack and your skin. You can ice for as many days as needed until swelling has resolved. Eyelid and lip swelling is typically the last type of swelling to resolve. Wound Care ??? Gently remove your initial bandage (after 48 hours from surgery). It is normal to have swellingand bruising. ??? Begin wound care as below. ??? If your initial bandage only stayed on for 24 hours (for example, falls off sooner), this is okay. Resume your wound care and bandaging instructions as below. ??? Change your bandage once a day (and whenever it becomes wet or soaks through) until your sutures are removed. If you have absorbable sutures, you do wound care for 1 week and then stop. ??? For bandage changes: o Wash hands with soap and water, or use gloves that you can purchase at a local pharmacy or drug store. o Clean the surgical area with cotton-tipped swabs or soft gauze dipped in soapy water (recommend liquid soap in clean room temperature water). Roll the cotton swab over the incision with soapy water, then with plain water, and then gently pat dry. Do not scrub the area with a washcloth. Do not putdirect shower water pressure onto your wound. Do not pick off any scabs. It is okay to allow soapy w ater to run over your wound in the shower, however. o If you cannot remove any bloody or crusted areas, you may soak the area with wet gauze first for 15 to 20 minutes to help soften it o Pat the area dry with clean gauze or cotton swabs. Do not rub. o Use a cotton swab to apply a generous layer of petrolatum over the incision lines and any open-wound areas. o Make sure your tube or jar of petrolatum is new or unused to prevent prior contamination from entering your wound. Avoid double dipping. o After applying petrolatum, use a clean nonstick gauze or other nonstick dressing, such as Telfa. This may be purchased over the counter at a drug store. Do not use regular gauze as it will stick toyour wound and can peel off healing skin with bandage changes. o Secure the bandage with paper tape or a bandage. Band-aids are okay, but typically have more adhesive that can irritate the skin compared to paper tape. This can be purchased at a drug store. o Continue this wound care daily until stitches are removed. This is typically for 5-7 days. If youhad absorbable stitches used, you will do wound care for 1 week then stop. Keep in mind that if you do not want to use a bandage at all due to difficulty, allergies, irritation of skin, cost, time, or inconvenience --- you can certainly avoid bandages altogether. However, it is imperative that you continue with topical petrolatum ointment or Aquaphor (plain, fragrance-free). This may need to be applied several times daily if it gets wiped off, washed off, or dries out. Things to purchase for wound care: -Nonstick gauze -A tube or tub of petrolatum jelly (fragrance-free, no dye, not lotion) -paper tape -cotton swabs -gloves (optional) -Dial or other antibacterial liquid soap If you have specific questions or instructions, it can be written/typed by your nurse or doctor here: Antibiotics: If you were given antibiotic prescription, it is important to start them the evening of your surgery date. However, most patients do not need antibiotics after surgery. For pain: Most patients of different ages do not require pain medications. If you do feel soreness, throbbingor sharp pains, start by taking over the counter extra strength acetaminophen (up to 3000 mg in a 24 hour period). Generally, we like you to avoid NSAIDS (non-steroid anti-inflammatory drugs such as ibuprofen) for the first 48 hours after surgery as this can increase risk of bleeding. However, if acetaminophen is not helping with pain, you can alternate acetaminophen with ibuprofen or other NSAID. Ice packs over your bandage without getting your bandage wet can also help with pain and swelling.Frozen peas work well as ice packs. THIS IS AN EXAMPLE OF A PAIN TREATMENT SCHEDULE: 1) You can take 500 mg acetaminophen one tablet by mouth at 6:00pm. This is over the counter. 2) You can take 400 mg of ibuprofen two hours later, at 8:00 pm, or other NSAID such as naproxen, as long as it does not interact with your other medications and your other doctors have not told you to avoid this. This is over the counter. Check to see how many milligrams (mg) each of your ibuprofen tablets are. Most of the time, ibuprofen comes in 200 mg tablets, so 400 mg would mean taking two of these tablets or capsules. 3) You can take 500 mg of acetaminophen at 10:00 pm. Keep track of your total acetaminophen in a 24hour period as your maximum should be 3000 mg total in a 24 hour period of this medication. 4) At midnight, you can take another 400 mg of ibuprofen. 5) you can continue on this schedule over the next 2 days, making sure to keep tabs of your total acetaminophen. If you are still in pain after trying the above, please call us. When to call your surgeon: ??? Fever of 100.4 degrees Fahrenheit or higher ??? Bleeding not controlled with direct firm pressure to your wound. Bleeding is most common in thefirst 48 hours. ??? Pain that is worsening and not relieved by over the counter medications such as acetaminophen (up to 3000 mg in a 24 hour period) ??? Wound reopening after stitching ??? Pus or bad odor from your wound ??? Worsening redness and warmth around your wound ??? If you think your surgery site is infected, please call us before seeking care or antibiotics from other providers ??? Please call us before seeking care in an emergency room or primary care. ??? If you do call, please leave your full name, phone number, date of , date of surgery, and medical record number if you have it. If after hours, please call the press brake operator or [phone] and ask for the weather stripper on-call. If you have any non-urgent questions or concerns, please feel free to call my office or contact me through our patient portal, [employer], at [email or web address] How to contact us during business hours Dermatology at [facility] [address]: Mohs scheduling or Mohs follow-up appointments: [phone] documented in this encounter Progress Notes * Ed Hoffmann MD - 02/24/2018 8:45 AM EST Mohs consultation and preoperative note (H&P) Patient Name: Cary Guajardo Age: 52 y.o. Date of : 1965 Today's Date: 02/24/2018 REFERRING PROVIDER: Chandni Monique CC: Mohs micrographic surgery for treatment of a cutaneous tumor HPI: Cary Guajardo is a 52 y.o. female presenting for biopsy-proven basal cell carcinoma, nodular/infiltrative location on the left forehead. The dermatologic preoperative information sheet was reviewed with pertinent positive and negative as below. DERMATOLOGIC PRE-OPERATIVE EVALUATION AND REVIEW OF SYSTEMS History of Mohs surgery? no Pacemaker/Defibrillator? no Joint replacement or other implantable devices (e.g. Cochlear implant)? If yes then when? no Do you take a blood thinner? No History of organ transplant? no History of artificial valve or stroke? no History of liver disease or bleeding disorder? no Do you have any medical problems that may affect your upcoming surgery? no Do you have any concerns regarding your upcoming surgery? no We ask patients to discontinue Fish oil/Multivitamin/Vit E/?? supplements and natural medicines not prescribed by a physician 1 week prior to surgery. SOCIAL HISTORY: Makes Own Decisions Yes Hearing aid or other devices: No Relevant travel history or future plans: none Tobacco use (amount per day, type of tobacco): no Do you have any physical limitations that may affect your surgery?: no PAST MEDICAL HISTORY No past medical history on file. PAST SURGICAL HISTORY No past surgical history on file. ALLERGIES: No Known Allergies MEDICATIONS: Current Outpatient Medications on File Prior to Visit Medication Sig Dispense Refill ??? fluocinolone acetonide (SYNALAR) 0.01 % Solution Apply topically for itch on scalp daily for upto 2 weeks then 1-3 times/week prn (Patient not taking: Reported on 02/24/2018) 60 mL 1 No current facility-administered medications on file prior to visit. VITAL SIGNS: BP 108/52 (BP Location (NBP): Left arm, Patient Position: Sitting, BP Cuff Sizes: Adult (25-34 cm)) Pulse 70 PHYSICAL EXAMINATION: General: patient is awake, alert, oriented and in no acute distress. Skin: Focused examination of surgical site(s) performed which shows an erythematous scar corresponding with recent biopsy site with surrounding pearly plaque. PHYSICIAN REVIEW OF REPORTS, RECORDS, IMAGES: 1) The accompanying pathology report(s) associated with aforementioned biopsy slide(s) were/was also reviewed. Assessment: Cary Guajardo is a 52 y.o. female presenting for: 1. Biopsy-proven basal cell carcinoma, nodular/infiltrative located on the left forehead. Plan: 1. Findings from the biopsy report, my independent review of the histopathology from the biopsy slides, today's clinical exam, and other pertinent details were reviewed with patient today. All questions were answered. 2. Discussed treatment options based on the above findings. We recommended Mohs micrographic surgery for treatment of this tumor. Mohs micrographic surgery was indicated due to patient, site and/or tumor characteristics (see operative report for specific indication). 3. We discussed risks, benefits, and alternative treatment options to the Mohs micrographic surgeryprocedure and pertinent information including but not limited to the following: ?? Risks include bleeding, infection, scar, recurrence, incomplete tumor removal or inability to cure with surgery alone if the tumor features are more aggressive than the initial pathology indicates. Occasionally, additional adjuvant treatments may be recommended. Additional risks include large wound, prolonged wound and healing, pain, swelling, bruising, increased appearance of vessels or worsening erythema of baseline skin; more rarely risks include damage to underlying structures such as nerves, cartilage, or muscle which could lead to temporary or permanent loss of sensation or motor function. ?? Benefit is precise tumor removal ?? If reconstruction is performed, it is specific to the patient and defect. ?? Discussed that the shape, size, depth of the wound is often not known until the tumor is clearedand thus the reconstruction options are sometimes not known until after tumor clearance. Occasionally, referrals to other providers may be recommended for reconstruction based on patient preference and need. ?? Reviewed the pros and cons of common reconstructions used for this tumor type, size, and location, and that reconstruction may lead to change in appearance. ?? Natural history of scar was discussed, including that the scar will continue to mature for 1-2 years. Recommended avoidance of special ointments or scar creams, and avoidance of direct sun exposure to the scar for optimal recovery. ?? Reviewed that there are some aspects of cosmesis that are dependent on patient's characteristicssuch as age, skin laxity/texture factors, inflammatory skin diseases such as rosacea, prior surgery/radiation, degree of actinic damage, smoking status, strength of the patient's immune system, diligent wound care, medications, and genetics. ?? Having Mohs surgery may lead to physical limitations for optimal healing, such as restricted physical activity and heavy lifting. 4. The nature of sun-induced photo-aging and skin cancers was discussed. Recommended sun avoidance when possible, especially peak hours of sun 10 am to 2pm, protective clothing such as wide-brimmed hats and long-sleeved clothing, and the use of SPF broad-spectrum sunscreen SPF 50 or higher. 5. Signs and symptoms of skin cancer reviewed. Patient to report any new, changing, or symptomatic lesions and follow up with his or her weather stripper or other skin provider. 6. Discussed avoiding direct sun exposure to scars for best cosmetic result. Summary of Procedure(s): 1. Please see operative report for complete details. Briefly, the tumor cleared in 1 stage(s). The final defect was repaired by complex linear closure. All absorbable sutures were used and the patient can return as needed. The patient was asked to call with any issues and is aware that I am available 20/10 should questions arise. Ed Hoffmann MD PhD Mohs Micrographic Surgery and Dermatologic Oncology Section of Dermatology, Department of Surgery * Ed Hoffmann MD - 02/24/2018 8:45 AM EST Mohs micrographic Surgery Operative Report Patient name: Cary Guajardo : 1965 Date: 02/24/2018 Staff Surgeon: Ed Hoffmann MD PhD Nursing/Flagstone Layer(s):Assistants: Bev Carreno LPN, Keaar Pro RN, Pricila Fagan LPN, Radha Coyle CMA, Manjula Craftegand Joanne BRIGHT CUTTER; Laura Parks CMA Rfid Strategist (s): Izabel Schwarz Amanda Isenor Pre-operative diagnosis: Basal Cell Carcinoma Post-operative diagnosis: Basal Cell Carcinoma Location/Site: Forehead Procedure: Mohs micrographic surgery Indication(s) for Mohs micrographic surgery: Anatomic location for tissue conservation Stages: 1 Preoperative size of tumor: 0.6 x 0.5 cm Stage I The nature and purpose of the procedure, associated risks, possible consequences and complications,and alternative forms of treatment were explained in detail. We reviewed the possible repairs basedon the clinical appearance of tumor but discussed that often the repair options may not be known until the tumor has sonia extirpated. Informed consent and permission to take photographs were obtained. The site was confirmed with the patient/authorized medical device sales representative/referring physician and/or a photograph form time of biopsy. A pre-operative time-out (procedural pause) was conducted with no unresolved discrepancies noted. Local anesthesia was obtained with 1% lidocaine with 1:100,000 epinephrine. The surgical site was prepped and draped in the usual sterile manner. With all visible gross tumor completely excised, the borders of the tumor and 2- 3 mm margins were excised as a complete layer. Hemostasis was achieved by electrocoagulation. The excised tissue was oriented and divided into 2 sections, chromacoded, and submitted for frozen sections. The patient tolerated the procedure well and without complications. On microscopic evaluation of the frozen sections, no residual tumor was identified on the deep or outer border of the sections. The final size of the defect after complete tumor removal was 1.0 x 0.8 cm, extending to level of subcutaneous tissue. Ed Hoffmann MD PhD Mohs Micrographic Surgery and Dermatologic Oncology Section of Dermatology, Department of Surgery Repair Operative Report (Complex Linear Repair) Patient name: Cary Guajardo : 1965 Clinical Diagnosis: 1.0 x 0.8 cm surgical defect secondary to Mohs microscopically controlled excision Location/Site: left forehead Indication: repair of wound for advent of function/anatomy Procedure: Complex linear layered closure of Mohs defect Due to the size and location of the defect resulting from the complete removal of the tumor, the postoperative risk of hemorrhage, infection, and the possibility of serious deformity from scarring, and in order to restore proper function and prevent loss of function, the defect was closed in the following manner. The nature and purpose of the procedure, associated risks, possible consequences, complications andalternative methods of treatment were explained to the patient in detail. An informed consent was obtained. The operative site was anesthetized with 1% lidocaine with 1:100,000 epinephrine. The site was prepped and draped in the usual sterile manner. The edges of the defect were widely undermined at the dermal subcutaneous layer in all directions. Hemostasis was achieved with electrocoagulation. The edges could then be approximated without excess tension. The deep tissues were apposed and sutured with 4.0 Monocryl sutures and the epidermal edges were approximated with 6-0 Fast absorbing running and/or interrupted sutures. .The resulting complex linear closure measured 3.2 cm. The surgical site was cleaned and white petrolatum with a gauze pressure dressing applied. The patient tolerated the procedure well and without complications and was given both verbal and written instruction on postoperative wound care. Follow up as needed. The patient was discharged in good condition. Total local anesthesia with 1% lidocaine with 1:100,000 epinephrine used: 5 cc Total local with 0.25% bupivacaine with 1:100,000 epinephrine used: 2.5 cc Ed Hoffmann MD PhD Mohs Micrographic Surgery and Dermatologic Oncology Section of Dermatology, Department of Surgery documented in this encounter Plan of Treatment Upcoming Encounters Date Type Department Care Team (Late st Contact Info) Description 08/17/2024 1:00 PM EDT Office Visit Dermatology at [facility] [address] [place] [address] Sheila Campbell MD [facility] [address] [address] documented as of this encounter Visit Diagnoses Diagnosis Basal cell carcinoma (BCC) of left forehead documented in this encounter Care Teams Nurse Assistant Relationship Specialty Start Date End Date Pricila Oscar APRN PCP - General 12/06/14 07/29/18 documented as of this encounter
--- OUTSIDE RECORDS SUMMARY | 2024-05-06 01:04 | XMS_ITS | Encounter Summary ---
Author Organization [facility] [place] [address] Care Team Providers Care Steam Engineer Name Role Phone Pricila Oscar APRN Primary Care Provider [phone] Encounter Details Date Type Department Care Team (Late st Contact Info) Description 11/27/2016 Telephone Dermatology at [facility] [address] [place] [address] Kendal Busch MD [facility] [place] [address] Social History Tobacco Use Types Packs/Day Years Used Date Smoking Tobacco: Never Assessed Sex and Gender Information Value Date Recorded Sex Assigned at Female 12/04/2020 12:10 PM EDT Gender Identity Female 12/04/2020 12:10 PM EDT Sexual Orientation Straight 12/04/2020 12 :10 PM EDT documented as of this encounter Miscellaneous Notes * Telephone Encounter - Zita Tenorio - 11/27/2016 9:33 AM EDT I left a voicemail for Cary Guajardo requesting a call back, we need to reschedule her appointment with Dr. Busch on 12/03/16 documented in this encounter Plan of Treatment Upcoming Encounters Date Type Department Care Team (Late st Contact Info) Description 08/17/2024 1:00 PM EDT Office Visit Dermatology at [facility] [address] [place] [address] Sheila Campbell MD [facility] [address] [place] [address] documented as of this encounter Visit Diagnoses Not on filedocumented in this encounter Care Teams Steam Engineer Relationship Specialty Start Date End Date Pricila Oscar APRN PCP - General 12/06/14 07/29/18 documented as of this encounter
--- OUTSIDE RECORDS SUMMARY | 2024-05-06 01:04 | XMS_ITS | Encounter Summary ---
Author Organization [facility] Address [address] [place] [address] Care Team Providers Care Firearms Sales Associate Name Role Phone Unknown, Provider Primary Care Provider Unava ilable Encounter Details Date Type Department Care Team (Late st Contact Info) Description 09/07/2000 Results Only [facility] - Map conversion [address] [place] [address] Delia Lang MD [address] [address] Social History Tobacco Use Types [...] Priority Date/Time Associated Diagnosis Comments CYTOPATHOLOGY Routine 09/07/2000 0:00 EDT documented in this encounter Results * CYTOPATHOLOGY (09/07/2000 0:00 EDT) Pathology Report: CYTOPATHOLOGY REPORT Reports generated via electronic interface contain original data; however they are lacking the format of the original report. Caution should be taken when reading/interpreti ng unformatted reports. Name: ? CARY GUAJARDO ? Accession #: ? [id number] : ? 1965 (Age: 35) ??F ?Collect Date: ? 09/07/2000 Location: ? [facility] ? Receive Date: ? 09/09/2000 Provider: ?DELIA LANG MD Copy to: ? Specimen/Source: ?ThinPrep Pap Test, Cervix/Endocervix Last Menstrual Period: ? 08/25/00 Previous Gynecologic Pathology: ? ASC-US: Favor Reactive 05/11/00, Repeat pap 3 to 6 months ? SPECIMEN ADEQUACY ? Satisfactory for evaluation. GENERAL CATEGORIZATION ? Within Normal Limits ? Document reviewed and electronically signed by: ? ROSEANN Van(ASCP) ? Report Date: ??09/10/2000 12:22 End of Report [facility] 09/07/2000 09/09/2000 us Delia Lang MD PATHOLOGY ORDERABLES Final Resul t [facility] [address] [place] [address] documented in this encounter Visit Diagnoses Not on filedocumented in this encounter Care Teams Firearms Sales Associate Relationship Specialty Start Date End Date Unknown, Provider, PCP - General 05/03/09 10/17/14 documented as of this encounter
--- OUTSIDE RECORDS SUMMARY | 2024-05-06 01:04 | XMS_ITS | Encounter Summary ---
Author Organization [facility] Address [address] [place] [address] Care Team Providers Care Senior Technical Support Engineer Name Role Phone Unknown, Provider Primary Care Provider Unava ilable Encounter Details Date Type Department Care Team (Late st Contact Info) Description 06/08/2000 Results Only [facility] - Maple conversion [address] [place] [address] Delia Lang MD [address] [address] Social History Tobacco Use Types [...] Date/Time Associated Diagnosis Comments SURGICAL PATHOLOGY Routine 06/08/2000 0:00 EST documented in this encounter Results * SURGICAL PATHOLOGY (06/08/2000 0:00 EST) Pathology Report: SURGICAL PATHOLOGY REPORT Reports generated via electronic interface contain original data; however they are lacking the format of the original report. Caution should be taken when reading/interpreti ng unformatted reports. Name: ? CARY GUAJARDO ? Accession #: ? [id number] ? : ? 1965 (Age: 35) ??F ? Collect Date: ? 06/08/2000 ? Location: ? [facility] ? Receive Date: ? 06/09/2000 ? Provider: DELIA LANG MD Copy to: LESLEY CHRISTINE MD ? Final Pathologic Diagnosis: ? Skin of arm, left, punch biopsy: - Verruca vulgaris. Document reviewed and electronically signed by: Alysa Caba MD Report ??Date: 06/10/2000 17:30 By the signature above, the attending physician certifies that he/she has personally conducted a gross and/or microscopic examination of the described specimens and rendered or confirmed the above diagnosis. Specimen(s) Received: ? 3 mm verrucous lesion, non-healing; L arm punch biopsy Clinical History: ? Clinical diagnosis code: 709.9 Gross Description: ? Received in formalin labelled Poginy and lesion L arm is a shave biopsy which measures 0.3 x 0.2 x 0.2 cm. ??The specimen is bisected and submitted entirely in one cassette. ??(Dr. Jim)/[facility] End of Report [facility] DUBON 06/08/2000 06/09/2000 15: 18 EST us Delia Lang MD PATHOLOGY ORDERABLES Final Resul t [facility] [address] [place] [address] documented in this encounter Visit Diagnoses Not on filedocumented in this encounter Care Teams Senior Technical Support Engineer Relationship Specialty Start Date End Date Unknown, Provider, PCP - General 05/03/09 10/17/14 documented as of this encounter
--- OUTSIDE RECORDS SUMMARY | 2024-05-06 01:04 | XMS_ITS | Encounter Summary ---
[place] [address] Care Team Providers Care Cryptozoologist Name Role Phone Pricila Oscar APRN Primary Care Provider [phone] Encounter Details Date Type Department Care Team (Latest Contact Info) Description 12/06/2014 10:45 AM EDT - 12/06/2014 11:59 PM EDT Hospital [place] [phone] CLINIC, Pricila Dsouza APRN [address] [place], [place] [id number] Discharge Disposition: Home Social History Tobacco Use [...] 1:00 PM EDT Office Visit Dermatology at [facility] [address] [place] [address] Sheila Campbell MD [facility] [place] [address] documented as of this encounter Procedures Procedure Name Priority Date/Time Associated Diagnosis Comments MAMMO 2D DIGITAL SCREEN CHAMP BILATERAL Routine 12/06/2014 11:12 AM EDT documented in this encounter Results * Mammo Screen Champ 2D Bilateral (12/06/2014 11:12 AM EDT) Anatomical Region Laterality Modality Breast Bilateral Mammography 12/06/2014 11:1 2 AM EDT Narrative 12/07/2014 8:59 AM EDT Reason for Exam: Screening ?? Technique: Craniocaudal (CC) and Medio-lateral Oblique (MLO) views of both breasts obtained with direct digital capture. In addition to routine 2-D imaging, this exam was also performed with 3-D Tomographic Imaging (MLO and CC). ?? The exam was evaluated by CAD version 8.3.17. ?? Findings: ?? This is a negative mammogram (ACR Category 1). There is a stable fibroglandular pattern without significant change from prior studies. There is no mammographic evidence of cancer. The breasts are heterogeneously dense which limits mammographic sensitivity for the detection of malignancy. ?? CONCLUSION: This is a NEGATIVE mammogram (ACR Category 1). ?? Routine screening mammography is recommended with the frequency dependent upon the patient's age and breast cancer risk factors. A letter has been sent to this patient by the breast imaging center. ?? Procedure Note Angelique Summers MD - 12/07/2014 Reason for Exam: Screening Technique: Craniocaudal (CC) and Medio-lateral Oblique (MLO) views of both breasts obtained with direct digital capture. In addition to routine 2-D imaging, this exam was also performed with 3-D Tomographic Imaging (MLOand CC). The exam was evaluated by CAD version 8.3.17. Findings: This is a negative mammogram (ACR Category 1). There is a stablefibroglandular pattern without significant change from prior studies. There is no mammographic evidence of cancer. The breasts areheterogeneously dense which limits mammographic sensitivity for the detection ofmalignancy. CONCLUSION: This is a NEGATIVE mammogram (ACR Category 1). Routine screening mammography is recommended with the frequency dependentupon the patient's age and breast cancer risk factors. A letter has been sent to this patient by the breast imaging center. Pricila Oscar APRN IMG MAMMO ORDERABL ES documented in this encounter Visit Diagnoses Not on filedocumented in this encounter Care Teams Cryptozoologist Relationship Specialty Start Date End Date Pricila Oscar APRN PCP - General 12/06/14 07/29/18 documented as of this encounter
--- OUTSIDE RECORDS SUMMARY | 2024-05-06 01:04 | XMS_ITS | Encounter Summary ---
[place] [address] Care Team Providers Care Optician Apprentice Dispensing Name Role Phone Stephani Christopher MD Primary Care Provider [phone] Encounter Details Date Type Department Care Team (Latest Contact Info) Description 03/14/2013 3:28 PM EST - 03/14/2013 11:59 PM EST Hospital En[place] [address] CLINIC, Stephani Kohler MD [address] [address] Abnormal mammogram, unspecified Discharge Disposition: Home Social History Tobacco Use [...] 1:00 PM EDT Office Visit Dermatology at [facility] [address] [place] [address] Sheila Campbell MD [facility] [place] [address] documented as of this encounter Procedures Procedure Name Priority Date/Time Associated Diagnosis Comments MAMMO CALL BACK DIAGNOSTIC EXTRA VIEW UNILATERAL Routine 03/14/2013 4:23 PM EST Abnormal mammogram, unspecified documented in this encounter Results * Mammo call back diagnostic extra view [...] unspecified documented in this encounter Care Teams Optician Apprentice Dispensing Relationship Specialty Start Date End Date Stephani Christopher MD [address] [place] [address] PCP - General 12/08/12 12/05/14 documented as of this encounter
--- OUTSIDE RECORDS SUMMARY | 2024-05-06 01:04 | XMS_ITS | Encounter Summary ---
Author Organization [facility] Address [facility] [place] [address] Care Team Providers Care Serology Technician Name Role Phone Pricila Oscar APRN Primary Care Provider [phone]- [phone] Encounter Details Date Type Department Care Team (Late st Contact Info) Description 12/24/2017 Telephone Dermatology at [address] [address] Chandni Monique MD [facility] [address] Social History Tobacco Use Types Packs/Day Years Used Date Smoking Tobacco: Former Smokeless Tobacco: Never Sex and Gender Information Value Date Recorded Sex Assigned at Female 12/04/2020 12:10 PM EDT Gender Identity Female 12/04/2020 12:10 PM EDT Sexual Orientation Straight 12/04/2020 12 :10 PM EDT documented as of this encounter Miscellaneous Notes * Telephone Encounter - Chandni Monique MD - 12/24/2017 8:59 AM EDT Spoke to pt to give results of bx on forehead. Pt to have mohs. Message sent to Nat Oconnor to schedule pt for 6 month f/u with me. Results: [id number] ? Location: [facility] The signing pathologist has (i) examined the relevant preparation(s) for the specimen(s) and (ii) rendered or confirmed the diagnosis(es). . ? Surgical Pathology DIAGNOSIS Skin, left forehead, shave ?? biopsy ONLY: - BASAL CELL CARCINOMA, NODULAR AND INFILTRATIVE PATTERNS, extending to peripheral ??and deep specimen edges documented in this encounter Plan of Treatment Upcoming Encounters Date Type Department Care Team (Late st Contact Info) Description 08/17/2024 1:00 PM EDT Office Visit Dermatology at [address] [address] Sheila Campbell MD [facility] [address] [address] documented as of this encounter Visit Diagnoses Not on filedocumented in this encounter Care Teams Serology Technician Relationship Specialty Start Date End Date Pricila Oscar APRN PCP - General 12/06/14 07/29/18 documented as of this encounter
--- OUTSIDE RECORDS SUMMARY | 2024-05-06 01:04 | XMS_ITS | Encounter Summary ---
Author Organization [facility] [place] [address] Care Team Providers Care Size Stamper Name Role Phone Stephani Christopher MD Primary Care Provider [phone] Encounter Details Date Type Department Care Team (Late st Contact Info) Description 12/07/2012 External Results XRay at [address] [place] [address] Provider, Scanning Social History Tobacco Use Types Packs/Day Years [...] at [facility] [address] [place] [address] Sheila Campbell MD [facility] [address] [place] [address] documented as of this encounter Procedures Procedure Name Priority Date/Time Associated Diagnosis Comments MAMMOGRAM SCAN Routine 03/25/2012 MAMMOGRAM SCAN Routine 03/17/2012 MAMMOGRAM SCAN Routine 03/01/2010 MAMMOGRAM SCAN Routine 08/15/2009 documented in this encounter Results * Scan Doc: Mammogram (03/25/2012) Anatomical Region Laterality Modality Other Scanning Provider MEDIA MGR SCAN EXT O RDR/RSLT * Scan Doc: Mammogram (03/17/2012) Anatomical Region Laterality Modality Other Scanning Provider MEDIA MGR SCAN EXT O RDR/RSLT * Scan Doc: Mammogram (03/01/2010) Anatomical Region Laterality Modality Other Scanning Provider MEDIA MGR SCAN EXT O RDR/RSLT * Scan Doc: Mammogram (08/15/2009) Anatomical Region Laterality Modality Other Scanning Provider MEDIA MGR SCAN EXT O RDR/RSLT documented in this encounter Visit Diagnoses Not on filedocumented in this encounter Care Teams Size Stamper Relationship Specialty Start Date End Date Stephani Christopher MD [address] [place] [address] PCP - General 12/08/12 12/05/14 documented as of this encounter
--- OUTSIDE RECORDS SUMMARY | 2024-05-06 01:04 | XMS_ITS | Encounter Summary ---
Author Organization [facility] Address [address] [place] [address] Care Team Providers Care Track Vehicle Repairer Name Role Phone Unknown, Provider Primary Care Provider Unava ilable Encounter Details Date Type Department Care Team (Latest Contact Info) Description 09/05/2014 10:20 EDT - 09/05/2014 23:59 EDT Hospital Encounter [address] [address] Unknown, ProviderMD Discharge Disposition: Home or Self Care Social [...] Code Departure Means Destination Home or Self Nursing Home documented in this encounter Plan of Treatment Not on file documented as of this encounter Visit Diagnoses Not on filedocumented in this encounter Care Teams Track Vehicle Repairer Relationship Specialty Start Date End Date Unknown, Provider, PCP - General 05/03/09 10/17/14 documented as of this encounter
--- OUTSIDE RECORDS SUMMARY | 2024-05-06 01:04 | XMS_ITS | Encounter Summary ---
Author Organization [facility] Address [facility] [place] [address] Care Team Providers Care Scanner Supervisor Name Role Phone Pricila Oscar APRN Primary Care Provider [phone]- [phone] Reason for Visit * Reason Comments Skin Check Encounter Details Date Type Department Care Team (Late st Contact Info) Description 12/21/2017 1:45 PM EDT Office Visit Dermatology at [place] [address] [place] [address] [facility] [place] [address] Lentigines; Basal cell carcinoma of skin of face, unspecified part of face; Seborrheic dermatitis; Seborrheic dermatitis of scalp; Dermatofibroma; Multiple benign nevi; SK (seborrheic keratosis); Fibrous papule of face Social History Tobacco Use Types Packs/Day Years Used Date Smoking Tobacco: Former Smokeless Tobacco: Never Sex and Gender Information Value Date Recorded Sex Assigned at Female 12/04/2020 12:10 PM EDT Gender Identity Female 12/04/2020 12:10 PM EDT Sexual Orientation Straight 12/04/2020 12 :10 PM EDT documented as of this encounter Patient Instructions * Patient Instructions* Zully Mercedes - 12/21/2017 1:45 PM EDT Images from the original note were not included. Kristina LeeMD Hypoallergenic and Strengthening Skincare Regimen Morning and Night: 1) Wash face with: Truecider creamy cleanser 2) Then tone skin with: True cider serum 3) Then apply: Hydrate, Correct and Protect lotion You will also need a good sunscreen. Common suggestions are: -Cotz Face Natural Skin Tone SPF 40, 1.5 Ounce (tinted or untinted) Available at [employer] or [employer] - Elta UV physical SPF 41 at [employer] - Cerave Invisible Zinc at any pharmacy Treatment and Wound Care Instructions Your treatment today: You have had a shave biopsy of your skin, which is a removal of tissue for examination under a microscope. This wound will heal without stitches. Allow 3-6 weeks for the wound to heal. If bleeding occurs, hold firm pressure against the wound for 15 minutes. If bleeding continues, calls the office or go to your local emergency room. Please allow 1-2 weeks for the biopsy results to return. Your physician or nurse will contact you with the results by phone or letter; follow-up will be discussed at that time. Wound Care Instructions: You will need to keep the dressing placed over the wound dry and intact for 24 hours. Afterwards, perform the following wound care daily: ?? Wash your hands before changing the dressing. ?? Remove the bandage and clean the area with mild soap and water, then gently pat the area dry. ?? Apply a small amount of Vaseline to the area, then cover the wound with a band-aid. Change your dressing daily until the wound is fully healed. ?? A small amount of yellow drainage is part of normal healing. The area might appear as a small depression with redness around the edge of the wound. This is normal. ?? Please contact the office you you notice any of the following signs of infection: increased tenderness, pain, drainage, or redness that becomes hot or hard around the wound. If you have further questions or concerns, please call the office at [phone]. If it is after 5PM, or a holiday or weekend, please call [phone] and ask for the Retention Specialist on-call. documented in this encounter Progress Notes * Chandni Monique MD - 12/21/2017 1:45 PM EDT Images from the original note were not included. DERMATOLOGY ESTABLISHED PATIENT CLINIC NOTE DATE OF SERVICE: 12/21/2017 Cary Guajardo : 1965 PROVIDER: Chandni Monique MD PATIENT PREFERENCES: -prefers to be called: Cary -james to communicate detailed result information by: Mail?: Y MyDH?: Y Voicemail?: Y and what #: [phone] (H) Chief Complaint Patient presents with ??? Skin Check HPI Cary Guajardo is a 52 y.o. year old female. New patient to me?yes To Derm? no Reports the following: - Patient presents for full body skin exam due to concerns about potential for skin cancer. Has patient had any sunburns in past? shoulder Does patient perform self skin exams? yes Does patient wear sunscreen? yes Does patient wear a hat with sun exposure? Off and on Dresses purposefully to avoid sun exposure? Off and on Any new or changing spots on scalp, neck, back, lips, trunk, nails or genital areas? Yes - bump located on forehead present for 4 months. Change in size? no Has any medication or intervention been tried? no Associated with: itch/bleeding/pain? no Has pt had anything like this before? No Other Hx: none Review of Systems: Feels well, no fatigue, no weight loss, no other skin concerns Sunscreen Use?: yes Skin Hx: Skin Cancer Type: BCC Location: left neck Treated with: excision at [facility] When: 10/16/14 Seborrheic dermatitis on scalp Eczema: no Psoriasis: no Staph Infections: no Herpes Infections: no FHX: -skin cancer?: Y What type?: unknown Who?: Father and grandfather -eczema?: no -psoriasis?: no -acne?: no -rosacea?: no -Daughter has unknown skin issues Current Outpatient Prescriptions on File Prior to Visit Medication Sig Dispense Refill ??? fluocinolone acetonide (SYNALAR) 0.01 % Solution Apply topically for itch on scalp daily for upto 2 weeks then 1-3 times/week prn 60 mL 1 No current facility-administered medications on file prior to visit. No Known Allergies EXAM General: AAOx3 Well-nourished adult in no apparent distress Skin: A total body skin exam except for areas covered by underwear was performed. This includes examination of the skin of the face, ears, neck, chest, axillae, left and right upper and lower extremities, hands and feet, abdomen, and except the areas covered by underwear were not examined. DIAGNOSIS/SKIN FINDINGS/ASSESSMENT/PLAN: # Lentigines - trunk and extremities: 0.3-0.6cm light-brown evenly pigmented, well-demarcated macule - Discussed benign nature of lesion and provided reassurance - No treatment necessary at this time - Observe skin for change in color, size or character. Call if such occur # BCC vs. Fibrous papule - Left forehead: 5mm telangiectatic papule - Joint decision made to proceed with skin biopsy for further diagnostic information. - A time-out procedure was performed. Patient denies having a pacemaker or any recent artifical joints within the past 2 years. Patient does not take Abx prior to any dental procedures. Procedure: Skin biopsy by shave technique Location: left forehead Discussed indications for procedure and expectations including [...] were reviewed. Follow-up based on pathology results. # Seborrheic dermatitis on face vs. Irritant Dermatitis: Yellowish, greasy scaly overlying erythematous patches - Recommended patient start the use of MD Jose products - Continue the use of Fluocinolone 0.05 % Solution as previously prescribed, call for refills # Seborrheic dermatitis on scalp - Continue the use of OTC anti dandruff shampoo rotating between Nizoral and Head & Shoulders - Wei. Derm handout given to patient today # Dermatofibroma (DF) - left buttock: firm papule, centrally raised and sclerotic, with peripheral hyperpigmentation and dimpling with lateral pressure. - Discussed benign nature of lesion and provided reassurance - No treatment necessary at this time - Observe skin for change in color, size or character. Call if such occur # Benign appearing nevi - back: Multiple, 0.3-0.5cm, medium-brown, evenly- pigmented macules and papules. All with regular pigment pattern on dermoscopy. No pigmented lesions suspicious for melanoma. - Discussed benign nature of lesion and provided reassurance - No treatment necessary at this time - Observe skin for change in color, size or character. Call if such occur # Seborrheic Keratosis - trunk: Multiple 0.4-0.6cm brown papules with waxy, stuck-on appearance. Milia-like cysts, comedone-like openings and/or fissuring on dermoscopy. - Etiology discussed - Patient reassured lesions are benign in nature - Explained that these are hereditary, adult onset and acquired. # Fibrous papule - philtrum - Discussed benign nature of lesion and provided reassurance - No treatment necessary at this time - Observe skin for change in color, size or character. Call if such occur - Discussed cosmetic removal for fibrous papule on philtrum and possible residual on the left forehead, patient quoted $150.00 for treatment of two lesions with hyfrecator Photo(s) were taken and charted with patient consent: FOLLOW UP: pending pathology as well as in 1 year for a full skin exam, sooner if needed. I am documenting this encounter acting as the scribe for and in the presence of Dr.Roberta Kayden JUDD LPN and Zully Mercedes I performed the above scribed service and agree with the accuracy of the documentation in this encounter. Chandni Monique MD Section of Dermatology [facility] Cary Guajardo 12/21/2017 [id number] documented in this encounter Plan of Treatment Upcoming Encounters Date Type Department Care Team (Late st Contact Info) Description 08/17/2024 1:00 PM EDT Office Visit Dermatology at [facility] [address] [place] [address] [facility] [address] [facility] [place] [id number] documented as of this encounter Procedures Procedure Name Priority Date/Time Associated Diagnosis Comments SPECIMEN TO PATHOLOGY Routine 12/21/2017 2:38 PM EDT Basal cell carcinoma of skin of face, unspecified part of face SURGICAL PATHOLOGY REPORT Routine 12/21/2017 2:19 PM EDT documented in this encounter Results * Specimen to Pathology (12/21/2017 2:38 PM EDT) AP Specimen 12/21/2017 2:38 PM EDT 12/21/2017 6:33 PM EDT Narrative [facility] - 12/21/2017 6:33 PM EDT Specimen requisition ordered. ??Separate Pathology report to follow Resulting Agency Comment Spec In Lab Chandni Monique MD PATHOLOGY/CYTOLOGY O RDERABLES [facility] [place] [id number] * Surgical Pathology Report (12/21/2017 2:19 PM EDT) Final Diagnosis [id number] ? Location: [facility] The signing pathologist has (i) examined the relevant preparation(s) for the specimen(s) and (ii) rendered or confirmed the diagnosis(es). . ?Surgical Pathology DIAGNOSIS Skin, left forehead, shave ?? biopsy ONLY: - BASAL CELL CARCINOMA, NODULAR AND INFILTRATIVE PATTERNS, extending to peripheral and deep specimen edges Electronically signed by: ??Ramesh POON, Fletcher Hyde Verified: ??12/23/2017 ?Dermatopatholog ist, Bone & Soft Tissue Pathologist Performed at: ??-[facility], [place], [place] CLINICAL INFORMATION Specimen Submitted: A - Skin, left forehead, shave biopsy ONLY (1) Clinical History and Diagnosis: BCC versus fibrous papule-Left forehead: 5 mm telangiectatic papule SPECIMEN PROCESSING A - Labeled/Fixative: Left forehead, formalin. Quantity/Size: ??Single, 0.5 x 0.4 x 0.1 cm. Tissue Description: Shave of krishna-pink skin. Sections/Processi ng: Inked, bisected and entirely submitted in 1 cassette labeled A1. ??apb 12/23/2017 1:40 PM EDT [facility] SPECIMEN FROM SKIN / Unknown 12/21/2017 2:19 PM EDT 12/21/2017 2:19 PM EDT Chandni Monique MD PATHOLOGY/CYTOLOGY O RICARDO [facility] [place] [address] documented in this encounter Visit Diagnoses Diagnosis Lentigines Other dyschromia Basal cell carcinoma of skin of face, unspecified part of face Seborrheic dermatitis Seborrheic dermatitis, unspecified Seborrheic dermatitis of scalp Other seborrheic dermatitis Dermatofibroma Benign neoplasm of skin, site unspecified Multiple benign nevi Benign neoplasm of skin, site unspecified SK (seborrheic keratosis) Other seborrheic keratosis Fibrous papule of face documented in this encounter Care Teams Scanner Supervisor Relationship Specialty Start Date End Date Pricila Oscar APRN PCP - General 12/06/14 07/29/18 documented as of this encounter
--- OUTSIDE RECORDS SUMMARY | 2024-05-06 01:04 | XMS_ITS | Encounter Summary ---
Author Organization [facility] Address [address] [place] [address] Care Team Providers Care Protective Officer Name Role Phone Unknown, Provider Primary Care Provider Unava ilable Encounter Details Date Type Department Care Team (Late st Contact Info) Description 09/05/2014 Results Only [facility] [phone] Minerva La, [address] [place], [place] [id number] Social History Tobacco Use Types Packs/Day Years [...] Date/Time Associated Diagnosis Comments SURGICAL PATHOLOGY Routine 09/05/2014 19 :43 EDT documented in this encounter Results * SURGICAL PATHOLOGY (09/05/2014 19:43 EDT) Pathology Report: SURGICAL PATHOLOGY REPORT Reports generated via electronic interface contain original data; however they are lacking the format of the original report. Caution should be taken when reading/interpret ing unformatted reports. Name: ? CARY GUAJARDO ? Accession #: ? [id number] ? : ? 1965 (Age: 49) ??F ? Collect Date: ? 09/05/2014 ? Location: ? [facility] ? Receive Date: ? 09/06/2014 ? Provider: MINERVA LA DO Copy to: JAYSON HERRERA SUPERINTENDENT ? Final Pathologic Diagnosis: SKIN OF NECK, LEFT, SHAVE BIOPSY: - Basal cell carcinoma, nodular type. - Basal cell carcinoma present at base of shave biopsy specimen. Microscopic Description: Irregularly shaped islands of atypical basal cells infiltrate the dermis. ??The basal cells have scant cytoplasm and round dark nuclei. ??Mitotic figures and apoptotic bodies are evident. ??The nuclei at the periphery of the islands have a palisaded arrangement. ??The islands are associated with a fibromyxoid stroma and there is cleft formation between some of the islands and stroma. ??(Dr. Caba)/[facility] Document reviewed and electronically signed by: DANNI CABA MD Report ??Date: 09/07/2014 16:12 By the signature above, the attending physician certifies that he/she has personally conducted a gross and/or microscopic examination of the described specimens and rendered or confirmed the above diagnosis. Specimen(s) Received: Left neck lesion Clinical History: F/H skin cancer, enlarging skin lesion; clinical diagnosis code: ??239.2 Gross Description: ? Received in formalin labelled with proper patient identification (initials P, T) and left neck is a shave biopsy of pink-krishna skin (0.6 x 0.6 x 0.1 cm). There is a central krishna-parsons slightly granular macule that measures 0.5 x 0.5 x 0.1 cm. ??The specimen is inked, trisected and entirely submitted in 1. Keara Montero 09/07/2014 08:40 AM End of Report [facility] 09/05/2014 19:4 3 EDT 09/06/2014 19:43 EDT us Minerva La DO PATHOLOGY ORDERABLES Fi nal Result [facility] [address] [place] [address] documented in this encounter Visit Diagnoses Not on filedocumented in this encounter Care Teams Protective Officer Relationship Specialty Start Date End Date Unknown, Provider, PCP - General 05/03/09 10/17/14 documented as of this encounter
--- NOTE | 2024-05-06 13:17 | DI.RAD_ITS ---
Exam(s) XR TOE RT GREAT EXAM: XR TOE RT GREAT CLINICAL HISTORY: toe injury,S92.572f. TECHNIQUE: 2D digital imaging was performed. COMPARISON: No exams were available for comparison FINDINGS: BONES: On the lateral at the dorsal aspect tuft, there is a lucency which could represent a nondispl aced fracture versus overlapping bony densities.. No bony destructive lesion is seen. JOINTS: No dislocation present. SOFT TISSUE: Swelling and soft tissue defect at the distal phalanx of great toe. No foreign body. IMPRESSION: Question of nondisplaced tuft fracture. DATA REPOSITORY: RADIATION DOSE DELIVERED:
== END 2024-05-06 01:12 ==
LOC: DI 00:52
PROVIDERS: PCP Nurse Practitioner Family; Visit Provider Podiatrist
DX: S99.921A Unspecified injury of right foot, initial encounter (principal); X58.XXXA Exposure to other specified factors, initial encounter
CPT/HCPCS: 73660

== ENCOUNTER 2024-08-04 10:30 | Day surgery (SDC) | payer BC, SELFPAY ==
[2024-08-04 10:32] VITALS: BP 107/67; PULSE 76; RESP 16; TEMP 36; O2SAT 100
[2024-08-04] MEDS: Lactated Ringers 1,000 ML 80 ML IV (11:01)
--- NOTE | 2024-08-04 11:09 | SCONE_ITS ---
Date of service: 08/04/24 Time of Service: 11:09 Assessment and Plan Assessment and plan (1) Encounter for screening colonoscopy: Status: Acute Assessment and plan: 59-year-old woman due for surveillance colonoscopy without symptoms or increased risk factors. Overall plan: Colonoscopy History of Present Illness Narrative: 59-year-old woman due for screening/surveillance colonoscopy. No symptoms. No prior findings on previous colonoscopy about 10 years ago. No family history of colon cancer. 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) Hyperlipidemia (Chronic) Generalized anxiety disorder (Chronic) 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 (Chronic) Stress incontinence (Chronic) History of skin cancer (Chronic) Tinnitus of right ear (Chronic) Medical History Depressive disorder Basal cell carcinoma (10/16/14) S/p excisions from left neck and left forehead Surgical History S/P laparoscopy Diagnostic laproscopy S/P Mohs surgery for basal cell carcinoma (02/24/18) To left forehead H/O basal cell carcinoma excision (10/16/14) From left neck S/P vaginal hysterectomy (05/01/09) For uterine prolapse at [facility]; ovaries remain Family History Mother , 70 Pulmonary emphysema Lung cancer Father , 70 Essential hypertension Heart disease Hyperlipidemia Brain aneurysm Thyroid disease Sister Atrial fibrillation Sister Asthma Thyromegaly Son No problems noted. Daughter Factor VIII deficiency Asthma Thyroid disease Maternal Grandfather Alcohol abuse Bone cancer Maternal Grandmother Lymphoma Paternal Grandfather No problems noted. Paternal Grandmother Asthma Stomach cancer Social History Smoking/Tobacco Use Status: Former Tobacco Use Quit Date: 03/30/82 Tobacco: How many years used: 5 Quit status: has quit before Second Hand Exposure: Yes Smoking risk assessment performed?: Yes Alcohol Intake: current Alcohol Intake frequency: a few times a month Alcohol type: beer, wine and hard liquor Drug use: Daily Substance use type: marijuana Details: smokes THC Adopted: No Caregiver/Support person: No Foster care: No Household members: spouse Housing: house Education Level: college Details: some Do you need help understanding health information?: Rarely 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, 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 Pets and animals: Yes Pets and animals: cat(s) Sexually active: Yes Do you think of yourself as: straight/heterosexual Current gender identity: female What is your relationship status?: How often do you attend zoroastrian or zoroastrianism services?: decline to answer Do you belong to any clubs or organized social groups?: yes Panel score (0-1 are the most socially isolated patients): 2 What type of physical activity do you participate in: other Details: stretching Duration: < 15 minutes/day Frequency: daily Taina/Bahai: No preference Special taina needs: No Agree to transfusion: Yes Seatbelt use: always Helmet use: Yes Helmet use: always Drive intox or ride w/intox maintenance truck driver: No Working smoke detector in home: Yes Firearms in home: Yes Firearms unloaded and locked: Yes Do you feel safe at home: Yes Do you feel safe in your relationship?: Yes Victim of physical abuse: No Victim of emotional abuse: No Victim of sexual abuse: No Would you like helpful sources: No Female Reproductive History Menstrual Menopause type: surgical History History 2 Para 2 Hx # Term Pregnancies Multiple births Hx # Pregnancies Ectopic pregnancies AB induced Hx Number of Living Children 2 AB spontaneous Exam Narrative Exam Narrative: Gen: Non-toxic, comfortable and interactive Neuro: Alert and oriented x3 Psych: Good mood and affect. Good insight and understanding into condition. Chest: Non-labored breathing, no wheezing, no visible shortness of breath. Heart: Regular Results Last Vital Signs Temp 96.8 F L 08/04/24 10:32 Pulse 76 08/04/24 10:32 Resp 16 08/04/24 10:32 BP 107/67 08/04/24 10:32 Pulse Ox 100 08/04/24 10:32
--- NOTE | 2024-08-04 11:10 | COLE_ITS ---
Date of service: 08/04/24 Time of Service: 11:10 Colonoscopy Report Procedure Description: PROCEDURES PERFORMED: 1. Colonoscopy with cold forceps biopsy PREOPERATIVE DIAGNOSIS: Surveillance colonoscopy POSTOPERATIVE DIAGNOSIS: Hyperplastic rectal polyps SURGEON: Russ Bender MD INDICATION FOR PROCEDURE: the patient is a 59-year-old woman with no family history of colon cancer, no symptoms and no prior findings on previous colonoscopy about 10 years ago. FINDINGS: Normal terminal ileum. Normal colon. No polyps. No inflammation. No obvious diverticular disease. No obvious hemorrhoid disease in the rectum. Scattered, flat, hyperplastic?appearing polyps in the rectum. One was removed with cold forceps technique to confirm benign histology. SURVEILLANCE interval/FOLLOW-UP: 10 years SPECIMENS: Yes EBL: Minimal COMPLICATIONS: None QUALITY of prep: Excellent Procedure in detail: The patient gave written consent and was in agreement with the indications, the potential risks as well as the benefits of the procedure. They were taken to the endoscopy suite and laid in the left lateral decubitus position. A timeout was performed and anesthesia was administered which was tolerated well. I started the procedure. Digital rectal and visual examination was performed and grossly within normal limits. A well-lubricated flexible colonoscope was then introduced and passed without any notable difficulty all the way to the cecum identified by the i leocecal valve and the appendiceal orifice. The terminal ileum was intubated and looked normal. The scope was then slowly withdrawn with the above-noted findings. The patient tolerated the procedure well and was taken to the PACU in hemodynamically stable condition.
--- NOTE | 2024-08-04 11:11 | W.PM.DSUDISC ---
Date of service: 08/04/24 Discharge Plan Disposition Patient Disposition: Home Condition: Good Discharge Details Attending Provider: Fabio Bender Primary Care Provider: Yris Cerna Home Meds and New Rx's Prescriptions: No Action Digestive Advantage Probio-Pre 800 million cell tablet 800 cell PO DAILY estrotone PO DAILY cholecalciferol (vitamin D3) 250 mcg (10,000 unit) capsule 250 mcg PO DAILY meclizine 25 mg tablet 25 mg PO TID PRN Patient Comments: TAKE 1 TABLET BY MOUTH THREE TIMES A DAY NEEDED FOR 5 DAYS ketoconazole 2 % cream 1 applic topical DAILY Qty: 120 6RF Rx Instructions: Apply to toenails once daily bisacodyl [Dulcolax (bisacodyl)] 5 mg tablet,delayed release (DR/EC) 5 mg PO ONCE Qty: 4 0RF Rx Instructions: Take per colonoscopy instructions provided by ordering providers office polyethylene glycol 3350 17 gram/dose powder 17 g PO ONCE Qty: 238 0RF Rx Instructions: Take per colonoscopy instructions provided by ordering providers office Discharge Instructions Additional Instructions: FINDINGS: No cancer or disease processes. Your small intestine, your colon and your rectum are healthy in appearance and there is nothing you need to worry about. You have a few benign rectal polyps called hyperplastic polyps which are extremely common, benign and nothing needs to be done about them. 1 of these was removed to assess, under the microscope and confirm that they are indeed completely benign. In this case, future ones can be left alone as they do not have any risk. Repeat a colonoscopy in 10 years. Activity:: Activity as Tolerated Diet:: As Tolerated Discharge Orders Discharge Orders: Discharge Order (Routine); Ordered 08/04/24 Ordered By: Fabio Bender DS: Diagnosis Discharge Diagnosis (1) Encounter for screening colonoscopy: Status: Acute
--- NOTE | 2024-08-04 11:14 | ANES.PREOP_ITS ---
General Info Date of Service Date Performed: 08/04/24 Height: 5 ft 4.5 in Weight: 56.8 kg Body Mass Index (BMI): 21.1 Surgical Procedure: Operation Date: 08/04/24 11:35 Proposed Procedure Side Surgeon p Colonoscopy Fabio Bender MD Actual Procedure Side Surgeon p Colonoscopy Not Applicable Fabio Bender MD Meds Allergies and Home Medications Allergies Allergy/AdvReac Type Severity Reaction Status Date / Time gluten Allergy Intermediate Nausea Verified 08/04/24 10:45 mold Allergy Intermediate Wheezing Verified 08/04/24 10:45 bee venom protein (honey bee) Allergy Mild Swelling/Ed Verified 08/04/24 10:45 leadio Home Medication ?Medication ?Instructions ?Recorded Bacillus coagulans 800 million 800 cell PO DAILY 02/26/22 cell tablet (Digestive Advantage Probiotics-Prebiotic) cholecalciferol (vitamin D3) 250 250 mcg PO DAILY 02/26/22 mcg (10,000 unit) capsule estrotone PO DAILY 02/26/22 meclizine 25 mg tablet 25 mg PO TID PRN 03/04/23 ketoconazole 2 % topical cream 1 applic topical DAILY #120 grams 05/19/24 bisacodyl 5 mg tablet,delayed 5 mg PO ONCE #4 tabs 06/30/24 release (Dulcolax (bisacodyl)) polyethylene glycol 3350 17 17 g PO ONCE #238 grams 06/30/24 gram/dose oral powder Current Visit Medications: Current Medications Generic Name Dose Route Start Last Admin Trade Name Freq PRN Reason Stop Dose Admin Ringer's Solution 1,000 mls @ 80 mls/hr 08/04/24 06:00 08/04/24 11:01 IV 08/04/24 23:59 80 mls/hr INFUSION TAYLER Administration IV Miscellaneous Supplies 1 each 08/04/24 06:00 Iv Access IV 08/04/24 23:59 DIRECTED TAYLER Sodium Chloride 0 ml 08/04/24 06:00 Normal Saline Flush 10 Ml Syr IV 08/04/24 23:59 PRN PRN Sodium Chloride 0 ml 08/04/24 06:00 Normal Saline 10 Ml Vial IJ 08/04/24 23:59 DIRECTED PRN Sterile Water 0 ml 08/04/24 06:00 Water,Injection,Sterile 10 Ml Vial IJ 08/04/24 23:59 DIRECTED PRN PFSH Active Problems Active Problems: Problem Status Onset Code Encounter for screening colonoscopy Acute Z12.11 Fracture of great toe of right foot Acute S92.401A 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 Acute L60.3 DJD (degenerative joint disease) of cervical spine Chronic M47.812 Hyperlipidemia Chronic E78.5 Generalized anxiety disorder Chronic F41.1 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 Chronic H81.12 Stress incontinence Chronic N39.3 History of skin cancer Chronic Z85.828 Tinnitus of right ear Chronic H93.11 Medical History Medical History Depressive disorder Basal cell carcinoma (10/16/14) S/p excisions from left neck and left forehead Surgical History Surgical History S/P laparoscopy Diagnostic laproscopy S/P Mohs surgery for basal cell carcinoma (02/24/18) To left forehead H/O basal cell carcinoma excision (10/16/14) From left neck S/P vaginal hysterectomy (05/01/09) For uterine prolapse at [facility]; ovaries remain Tobacco Smoking/Tobacco Use Status: Former Tobacco Use Passive smoking exposure: Yes Second hand exposure: Yes Alcohol Alcohol Intake: current Alcohol intake frequency: a few times a month Alcohol type: beer, wine and hard liquor Substance Use Substance use: Daily Substance use type: marijuana Details: smokes THC Prental History History 2 Para 2 Hx # Term Pregnancies Multiple births Hx # Pregnancies Ectopic pregnancies AB induced Hx Number of Living Children 2 AB spontaneous Vital Signs and Lab Results Vital Signs Most Recent Vital Signs in EMR: Most Recent Vital Signs Temp Pulse Resp BP Pulse Ox 36 C L 76 16 107/67 100 08/04/24 10:32 08/04/24 10:32 08/04/24 10:32 08/04/24 10:32 08/04/24 10:32 Lab Results Blood Type / Crossmatch: No Data to Display Complete Blood Count: No Data to Display Complete Metabolic Panel: No Data to Display Liver Function Panel: No Data to Display Coagulation Panel: No Data to Display Cardiac Panel: No Data to Display Arterial Blood Gas: No Data to Display Venous Blood Gas: No Data to Display Pancreas Panel: No Data to Display Thyroid Panel: No Data to Display Infectious Disease: No Data to Display Blood Cultures: No Data to Display Toxicology Panel: No Data to Display Imaging and Studies Imaging and Studies Study information below may be from another EMR and interpreted by another provider. Please see original notes in EMR for more complete details. Stress Test Summary: 07/31/17: mpressions: Normal study after maximal exercise. Summary: 1. Stress ECG conclusions: Cortez treadmill score: 9. This score predicts a low risk of cardiac events. Carotid Artery Summary:: 09/17/20: IMPRESSION: No evidence for hemodynamically significant carotid stenosis. Antegrade flow is demonstrated in both vertebral arteries Criteria for Carotid Stenosis: Normal: ICA PSV <125 cm/s no plaque or intimal thickening is visible. <50% stenosis: ICA PSV <125 cm/s and plaque or intimal thickening is visible. 50-69% stenosis: ICA PSV is 125-250 cm/s and plaque is visible. >70% stenosis to near occlusion: ICA PSV >250 cm/s with visible plaque and luminal narrowing. Anesthesia Assessment and Plan Anesthesia History Personal History: No History of Anesthesia Complications Family History: No Family History of Anesthesia Complications Exercise Tolerance Exercise Tolerance: Metabolic Equivalents>4 Pertinent Negatives Pertinent Negatives: No Symptoms of GERD, No Major Cardiovascular Symptoms or Complaints and No Major Pulmonary Symptoms or Complaints Cardiac & Pulmonary Exam Cardiac Exam: Normal S1/S2 Heart Sounds Pulmonary Exam: Clear Bilateral Breath Sounds Implantable Cardiac Device Does patient have a Pacemaker or an ICD?: No Airway Exam Known Difficult Airway: No Mallampati Class: 2 Mouth Opening: Normal (> 3cm) Thyromental Distance: Greater than 3 cm Neck Range of Motion: Full ROM Neck Circumference: Normal Teeth Condition: Normal Dentition ASA Classification ASA Score: ASA 2 Emergency Case?: No NPO Status NPO Status: NPO Clears >2 hours, Solids >8 hours Anesthesia Plan Resuscitation Status: Full Code Anesthesia Technique: General Anesthesia Airway Planned: Natural Airway Monitors Used: Standard Monitors
[2024-08-04 11:16] VITALS: BMI 21.1
--- NOTE | 2024-08-04 11:56 | BOWEL_PTH ---
PATIENT: Cary Guajardo LOC: [facility] U#:[id number] AGE/SX: 59/F ROOM: RE08/04/[address]: Fabio Bender : 1965 BED: DIS: 08/04/2024 SPEC #: [id number] RECD: 08/04/24 13:11 STATUS: JORGE LUIS RE #: [id number] BRAIN: 08/04/24 11:[address]: Fabio Bender DEPT: Surgical Specimen RECD BY: Annie Llanos ENTERED: 08/04/24 13:11 SP TYPE: Bowel OTHR DR: ADAM Melendez Tissues: 1 - BIOPSY BOWEL Procedures: GROSS AND MICRO LEVEL 4 Comments: [id number]
[2024-08-04 12:07] VITALS: BP 89/53; PULSE 66; RESP 16; TEMP 36.3; O2SAT 100
--- NOTE | 2024-08-04 12:15 | W.ANESPOSTOP ---
Postoperative Evaluation Date, Time and Location Date Performed: 08/04/24 Time Performed: 12:15 Patient Location: Day Surgery Unit Vital Signs Most Recent Imported Vital Signs: Most Recent Vital Signs Temp Pulse Resp BP Pulse Ox 36.3 C L 66 16 89/53 L 100 08/04/24 12:07 08/04/24 12:07 08/04/24 12:07 08/04/24 12:07 08/04/24 12:07 Pain Score Most Recent Pain Score: Most Recent Pain Score Pain Level 0 08/04/24 12:07 Assessment Mental Status: Awake (Alert & Oriented to Patient Baseline) Airway and Respiratory Function: Patent airway with normal (patient baseline) respiratory exam Cardiovascular Function: Hemodynamically Stable Hydration Status: Adequately Hydrated Nausea & Vomiting: No Nausea or Vomiting Pain: Pt. Denies Any Pain Peripheral Nerve Block: Patient did not receive a nerve block
[2024-08-04 12:35] VITALS: BP 92/55; PULSE 60; RESP 16; TEMP 36.2; O2SAT 100
== END 2024-08-04 12:50 | disposition home or self-care (01) ==
PROVIDERS: PCP Nurse Practitioner Family; Visit Provider Student in an Organized Health Care Education/Training Program
PROC: 0DJD8ZZ Inspection of Lower Intestinal Tract, Via Natural or Artificial Opening Endoscopic (ICD-10-PCS; CPT 45378; principal; 2024-08-04 11:30)
DX: Z12.11 Encounter for screening for malignant neoplasm of colon (principal); K63.5 Polyp of colon
CPT/HCPCS: 45380; 88305; J2003; J2704